=== PATIENT | female | born 2000 | race Caucasian/White ===

== ENCOUNTER 2023-05-09 17:36 | Emergency (ER) | payer BC, OTHER, SELFPAY ==
[2023-05-09] VITALS (16 sets, daily range): BP systolic 108–131; BP diastolic 69–85; PULSE 82–110; RESP 14–25; TEMP 36.9; O2SAT 96–100; BMI 26.3
--- NOTE | 2023-05-09 18:02 | XR_ITS ---
[place] [id number] Patient Name: SARI GLEZ MRN: [id number] date: 2000 Sex: F Assigned Patient Location: ER Current Patient Location: ER Accession/Order Number: [id number] Exam Date: 05/09/2023 18:18 Report Date: 05/09/2023 18:32 At the request of: LALO MANDUJANO Procedure: XR chest 2V EXAM: XR chest 2V HISTORY: pain COMPARISON: 02/18/2023 TECHNIQUE: PA and lateral views of the chest FINDINGS: There is no focal airspace consolidation. The cardiomediastinal silhouette is not enlarged. No evidence of pleural effusion or pneumothorax are identified. No acute osseous abnormality. IMPRESSION: No acute cardiopulmonary process. Electronically authenticated by: JOSE MCDANIEL Date: 05/09/2023 18:32
--- NOTE | 2023-05-09 18:02 | ECG_ITS ---
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
--- NOTE | 2023-05-09 18:07 | ED_ITS ---
HPI - General Adult General Chief complaint: Chest Pain Stated complaint: chest pain, sob Time Seen by Provider: 05/09/23 18:02 Source: patient Mode of arrival: walk-in Limitations: no limitations History of Present Illness HPI narrative: 22-year-old female presents with a chief complaint of pain with deep inspiration. Patient states she had similar symptoms approximately one month ago with diagnosed with walking pneumonia. Pain is reproducible with deep inspiration. She is not hypoxic. Denies any recent surgery travel or trauma. States was placed on antibiotic previously. She is not asthmatic. We'll send are stable she is afebrile. Related Data Home Medications Medication Instructions Recorded Confirmed fluoxetine 10 mg capsule 10 mg PO DAILY 05/09/23 05/09/23 Previous Rx's Medication Instructions Recorded prednisone 20 mg tablet 20 mg PO BID 5 days #10 tabs 05/09/23 Allergies Allergy/AdvReac Type Severity Reaction Status Date / Time No Known Drug Allergies Allergy Verified 05/09/23 17:42 Review of Systems ROS Narrative All Systems are negative except as noted/marked.All systems reviewed and otherwise negative PFSH PFSH Social History Smoking status: Current some day smoker Exam Constitutional Vital Signs - 24 hr 05/09/23 17:42 05/09/23 17:46 05/09/23 17:50 Temperature 98.5 F Pulse Rate 110 H 98 H Pulse Rate [Monitor] 100 H Respiratory Rate 20 18 17 Blood Pressure Blood Pressure [Right Arm] 127/83 H Pulse Oximetry 97 98 Oxygen Delivery Method Room Air 05/09/23 18:00 05/09/23 18:10 05/09/23 18:22 Temperature Pulse Rate 99 H 84 106 H Pulse Rate [Monitor] Respiratory Rate 17 18 19 Blood Pressure Blood Pressure [Right Arm] Pulse Oximetry Oxygen Delivery Method 05/09/23 18:30 05/09/23 18:40 05/09/23 18:50 Temperature Pulse Rate 94 H 86 82 Pulse Rate [Monitor] Respiratory Rate 25 H 18 14 Blood Pressure Blood Pressure [Right Arm] Pulse Oximetry Oxygen Delivery Method 05/09/23 18:52 05/09/23 18:53 05/09/23 19:00 Temperature Pulse Rate 88 85 91 H Pulse Rate [Monitor] Respiratory Rate 17 19 21 Blood Pressure 108/69 113/74 Blood Pressure [Right Arm] Pulse Oximetry 97 98 97 Oxygen Delivery Method 05/09/23 19:30 05/09/23 19:41 05/09/23 20:00 Temperature Pulse Rate 92 H 94 H Pulse Rate [Monitor] Respiratory Rate 22 24 Blood Pressure 122/77 H 131/74 H 111/85 H Blood Pressure [Right Arm] Pulse Oximetry 96 100 Oxygen Delivery Method Course Vital Signs Vital signs: Vital Signs Temperature 98.5 F 05/09/23 17:42 Pulse Rate 100 H 05/09/23 17:42 Respiratory Rate 20 05/09/23 17:42 Blood Pressure 127/83 H 05/09/23 17:42 Pulse Oximetry 97 05/09/23 17:42 Oxygen Delivery Method Room Air 05/09/23 17:42 Temperature 98.5 F 05/09/23 17:42 Pulse Rate 94 H 05/09/23 19:41 Respiratory Rate 16 05/09/23 20:20 Blood Pressure 111/85 H 05/09/23 20:20 Pulse Oximetry 99 05/09/23 20:20 Oxygen Delivery Method Room Air 05/09/23 17:42 Medical Decision Making Medical Records Medical records reviewed: Yes I reviewed the patient's medical records Medical records narrative: Patient presented here with a chief complaint of chest pain with deep inspiration. She states she had similar symptoms one month ago was diagnosed with walking pneumonia. She was seen here in the hospital and given a prescription for Zithromax. She presents today with increased pain with deep inspiration. She is not tachypneic while signs are stable she's afebrile. Denies a history of fever. Denies any radiation pain or shortness of breath. Patient heart score of zero. D-dimer is currently pending. There is a system error and our d-dimer sitting sent to another facility. She wishes to go home she is curr ently stable. She has been medicated here with Toradol for a minor headache as well. Denies worse headache of her life. Patient is made aware of her d-dimer is elevated she did come back to the hospital to have a CT scan of her chest. She still wishes to go home. Patient is currently stable vital signs are stable pulses ninety-four appears for an temperature 78.5. Patient be discharged from prescription of prednisone diagnosis chest wall pain or pleurisy Lab Data Labs: Lab Results 05/09/23 Range/Units 18:45 D-Dimer (<=0.59) mg/L FEU ECG Data Interpretation: 1746 a GC shows a sinus tachycardia with rate of 101 bpm, NM interval 142 ms QRS duration 80 ms no STEMI, motor EKG compared to February 18 Discharge Plan Discharge Chief Complaint: Chest Pain Clinical Impression: Chest pain, Pleurisy Patient Disposition: Home, Self-Care Time of Disposition Decision: 20:01 Condition: Good Prescriptions / Home Meds: New prednisone 20 mg tablet 20 mg PO BID 5 Days Qty: 10 0RF No Action fluoxetine 10 mg capsule 10 mg PO DAILY Instructions: Pleurisy (ED), Chest Wall Pain (ED) Stand Alone Forms: Portal Instructions Referrals: GIACOMO CAPPS [Primary Care Provider] - 1 week Discharge Date/Time: 05/09/23 20:21
[2023-05-09] MEDS: KETOROLAC TROMETHAMINE 60 MG/2 ML VIAL IM (19:57)
== END 2023-05-09 20:21 | disposition home or self-care (01) ==
PROVIDERS: Physician Assistant; Emergency Provider Emergency Medicine; PCP Family Medicine
DX: R07.9 Chest pain, unspecified (principal); R09.1 Pleurisy; F17.210 Nicotine dependence, cigarettes, uncomplicated
CPT/HCPCS: 36415; 71046; 85378; 93005; 96372; 99285

== ENCOUNTER 2023-09-17 18:47 | Emergency (ER) | payer BC, OTHER, SELFPAY ==
[2023-09-17 18:51] VITALS: BP 128/87; PULSE 107; RESP 16; TEMP 37.1; O2SAT 98; BMI 25.0
--- NOTE | 2023-09-17 19:25 | ED.EAR1 ---
HPI - Ear Problem General Chief complaint: Ear Stated complaint: EARACHE Time Seen by Provider: 09/17/23 19:20 Source: patient Mode of arrival: walk-in Limitations: no limitations History of Present Illness HPI Narrative: patient presents complaining of right ear ache for couple of days. also has dental pain same side as the ear pain. No fever, headache or nausea. No sore throat. States she had similar pain in the past and it was her tooth and not her ear. Has upcoming appointment with her dentist Complaint: Reports ear pain Related Data Home Medications Medication Instructions Recorded Confirmed fluoxetine 10 mg capsule 10 mg PO DAILY 05/09/23 05/09/23 Previous Rx's Medication Instructions Recorded prednisone 20 mg tablet 20 mg PO BID 5 days #10 tabs 05/09/23 Allergies Allergy/AdvReac Type Severity Reaction Status Date / Time No Known Drug Allergies Allergy Verified 05/09/23 17:42 Review of Systems ROS Status of ROS 10 or more systems reviewed and unremarkable except as noted in history and below PFSH PFSH Social History Smoking status: Never smoker Exam Constitutional Vital Signs, click to edit/add: Last Vital Signs Temp 98.7 F 09/17/23 18:51 Pulse 107 H 09/17/23 18:51 Resp 16 09/17/23 18:51 BP 128/87 09/17/23 18:51 Pulse Ox 98 09/17/23 18:51 O2 Del Method Room Air 09/17/23 18:51 Common normals: no apparent distress, average body habitus, oriented x3, no limitations and healthy appearing HENMT Other: bilat TMs normal no obvious dental caries Eye Common normals: PERRL, EOMs intact bilaterally and conjunctivae normal Respiratory Common normals: normal respiratory effort, no retractions, no use of accessory muscles and clear to auscultation bilaterally Extremity Common normals: normal to inspection and full ROM Neuro Common normals: oriented x3, CN's II-XII intact bilaterally, moves all extremities, no focal motor deficits and no sensory deficits noted Psych Appearance: grossly normal Course Vital Signs Vital signs: Vital Signs Temperature 98.7 F 09/17/23 18:51 Pulse Rate 107 H 09/17/23 18:51 Respiratory Rate 16 09/17/23 18:51 Blood Pressure 128/87 09/17/23 18:51 Pulse Oximetry 98 09/17/23 18:51 Oxygen Delivery Method Room Air 09/17/23 18:51 Temperature 98.7 F 09/17/23 18:51 Pulse Rate 107 H 09/17/23 18:51 Respiratory Rate 16 09/17/23 18:51 Blood Pressure 128/87 09/17/23 18:51 Pulse Oximetry 98 09/17/23 18:51 Oxygen Delivery Method Room Air 09/17/23 18:51 Medical Decision Making MDM Narrative Medical decision making narrative: presents with ear pain for a couple of days. right ear pain. Exam of the right ear is unremarkable. Patient informed of these findings. Advised to follow up with her dentist as scheduled and use motrin or similar for pain Discharge Plan Discharge Chief Complaint: Ear Clinical Impression: Ear pain, right Patient Disposition: Home, Self-Care Prescriptions / Home Meds: No Action fluoxetine 10 mg capsule 10 mg PO DAILY prednisone 20 mg tablet 20 mg PO BID 5 Days Qty: 10 0RF Instructions: Earache (ED) Stand Alone Forms: Portal Instructions Referrals: GIACOMO CAPPS [Primary Care Provider] - 1 week
== END 2023-09-17 19:44 | disposition home or self-care (01) ==
PROVIDERS: Emergency Provider Internal Medicine; PCP Family Medicine
DX: H92.01 Otalgia, right ear (principal)
CPT/HCPCS: 99281

== ENCOUNTER 2023-09-20 19:13 | Emergency (ER) | payer BC, OTHER, SELFPAY ==
[2023-09-20 19:21] VITALS: BP 122/69; PULSE 120; RESP 16; TEMP 36.9; O2SAT 96; BMI 25.0
--- NOTE | 2023-09-20 19:27 | PC.NURSE ---
pt presents to ED because patient states she was here with her son on tuesday and was c/o right ear pain. pt states they looked at her ear and was told everything looked good. pt states that she is now having pain to a tooth on the right lower side. patient has known infection and a broken tooth on that side and it has been there for a while but it just now started giving her problems. pt states right ear pain is worse today.
--- NOTE | 2023-09-20 19:38 | ED.DENTAL1 ---
HPI - Dental/Oral General Chief complaint: Dental/Oral Stated complaint: Dental Pain Time Seen by Provider: 09/20/23 19:19 History of Present Illness HPI Narrative: patient is a 23-year-old female who presents to the emergency department for the evaluation of dental pain. Patient states she was seen in this emergency department several days ago for right ear pain, her right ear was unremarkable and she was discharged home. She states she is now having pain in the tooth in the right maxilla, she states she is known to have an issue with this tooth and it is supposed to be pulled. She states she recently had a tooth pulled from the left side of the jaw so she has been chewing on the right side and she believes this has made her pain worse. She has had no fevers, no vomiting, no concern for . Related Data Home Medications Medication Instructions Recorded Confirmed fluoxetine 10 mg capsule 10 mg PO DAILY 05/09/23 09/20/23 Previous Rx's Medication Instructions Recorded amoxicillin 500 mg capsule 500 mg PO TID 7 days #21 caps 09/20/23 ketorolac 10 mg tablet 10 mg PO TID PRN pain #10 tabs 09/20/23 Allergies Allergy/AdvReac Type Severity Reaction Status Date / Time No Known Drug Allergies Allergy Verified 09/20/23 19:24 Review of Systems ROS Constitutional Denies: fever or chills Ears, nose, mouth, and throat Denies: throat pain Cardiovascular Denies: chest pain Respiratory Denies: shortness of breath or cough Gastrointestinal Denies: nausea or vomiting Musculoskeletal Denies: back pain Integumentary/Breast Denies: rash Allergic/Immunologic Denies: hives PFSH PFSH Social History Smoking status: Current every day smoker Exam Narrative Exam Narrative: Gen.: Awake, alert, in no distress Head: Normocephalic, atraumatic ENT: Moist mucous membranes, bilateral tympanic membranes clear; no mandibular or maxillary swelling, tooth #1 is tender with no drainage or abscess noted. No redness or swelling under the tongue Respiratory: No respiratory distress Extremities: Moves extremities equally Psych: Normal mood and affect Neuro: No focal neuro deficit Skin: Warm, dry, intact Constitutional Vital Signs, click to edit/add: Last Vital Signs Temp 98.5 F 09/20/23 19:21 Pulse 120 H 09/20/23 19:21 Resp 16 09/20/23 19:21 BP 122/69 09/20/23 19:21 Pulse Ox 96 09/20/23 19:21 O2 Del Method Room Air 09/20/23 19:21 Course Vital Signs Vital signs: Vital Signs Temperature 98.5 F 09/20/23 19:21 Pulse Rate 120 H 09/20/23 19:21 Respiratory Rate 16 09/20/23 19:21 Blood Pressure 122/69 09/20/23 19:21 Pulse Oximetry 96 09/20/23 19:21 Oxygen Delivery Method Room Air 09/20/23 19:21 Temperature 98.5 F 09/20/23 19:21 Pulse Rate 120 H 09/20/23 19:21 Respiratory Rate 16 09/20/23 19:21 Blood Pressure 122/69 09/20/23 19:21 Pulse Oximetry 96 09/20/23 19:21 Oxygen Delivery Method Room Air 09/20/23 19:21 MDM - Dental/Oral MDM Narrative Medical decision making narrative: patient will be treated for dental pain with known dental caries, short course of amoxicillin given as she finished antibiotics approximately one month ago. Topical analgesia and NSAIDs given for comfort. No evidence of significant dental abscess, no trismus or drooling. Medical Records Attestation: I reviewed the patient's medical records. Discharge Plan Discharge Chief Complaint: Dental/Oral Clinical Impression: Toothache Patient Disposition: Home, Self-Care Time of Disposition Decision: 19:36 Condition: Good Prescriptions / Home Meds: New amoxicillin 500 mg capsule 500 mg PO TID 7 Days Qty: 21 0RF ketorolac 10 mg tablet 10 mg PO TID PRN (Reason: pain) Qty: 10 0RF No Action fluoxetine 10 mg capsule 10 mg PO DAILY Instructions: Toothache (ED) Stand Alone Forms: Portal Instructions Referrals: GIACOMO CAPPS [Primary Care Provider] - 1 week Discharge Date/Time: 09/20/23 19:59
[2023-09-20] MEDS: BENZOCAINE 30 ML, lidocaine HCL 15 ML MM (19:56)
== END 2023-09-20 19:59 | disposition home or self-care (01) ==
PROVIDERS: Emergency Provider Internal Medicine; PCP Family Medicine
DX: K08.89 Other specified disorders of teeth and supporting structures (principal); F17.210 Nicotine dependence, cigarettes, uncomplicated
CPT/HCPCS: 99283

== ENCOUNTER 2023-12-03 18:14 | Emergency (ER) | payer BC, OTHER, SELFPAY ==
[2023-12-03 18:19] VITALS: BP 142/84; PULSE 103; RESP 16; TEMP 36.8; O2SAT 97; BMI 20.5
--- NOTE | 2023-12-03 18:19 | ED.DENTAL1 ---
HPI - Dental/Oral General Chief complaint: Dental/Oral Stated complaint: TOOTH PAIN Time Seen by Provider: 12/03/23 18:18 Source: patient History of Present Illness HPI Narrative: patient's here with pain in her lower right mandibular area here she was seen here several months ago and had left sided mandibular toothache. She subsequently had her tooth pulled but now the bottom right side is causing a problem. She's noticed a lump on the side of her gum area. She doesn't really have any facial swelling. She does not have a known ALLERGIES. She is not currently on any antibiotics at this time. She just can't find a oral surgeon who can deal with this problem because apparently she has a molar that needs to be pulled and have regular dentist won't do that work for her. Related Data Home Medications Medication Instructions Recorded Confirmed fluoxetine 10 mg capsule 10 mg PO DAILY 05/09/23 12/03/23 benzonatate 200 mg capsule 200 mg PO TID 12/03/23 12/03/23 fluticasone propionate 50 1 spray intranasal DAILY 12/03/23 12/03/23 mcg/actuation nasal spray,suspension metformin 500 mg tablet 500 mg PO BID 12/03/23 12/03/23 prednisone 10 mg tablet 10 mg PO DAILY 12/03/23 12/03/23 rizatriptan 10 mg tablet 10 mg PO Q2H PRN migraine headache 12/03/23 12/03/23 Previous Rx's Medication Instructions Recorded penicillin V potassium 250 mg 250 mg PO QID 10 days #40 tabs 12/03/23 tablet Allergies Allergy/AdvReac Type Severity Reaction Status Date / Time No Known Drug Allergies Allergy Verified 09/20/23 19:24 PFSH PFSH Social History Smoking status: Current every day smoker Exam Constitutional Vital Signs, click to edit/add: Last Vital Signs Temp 98.6 F 12/03/23 19:47 Pulse 98 H 12/03/23 19:47 Resp 18 12/03/23 19:47 BP 122/78 12/03/23 19:47 Pulse Ox 100 12/03/23 19:47 O2 Del Method Room Air 12/03/23 19:47 Course Vital Signs Vital signs: Vital Signs Temperature 98.3 F 12/03/23 18:19 Pulse Rate 103 H 12/03/23 18:19 Respiratory Rate 16 12/03/23 18:19 Blood Pressure 142/84 H 12/03/23 18:19 Pulse Oximetry 97 12/03/23 18:19 Oxygen Delivery Method Room Air 12/03/23 18:19 Temperature 98.6 F 12/03/23 19:47 Pulse Rate 98 H 12/03/23 19:47 Respiratory Rate 18 12/03/23 19:47 Blood Pressure 122/78 12/03/23 19:47 Pulse Oximetry 100 12/03/23 19:47 Oxygen Delivery Method Room Air 12/03/23 19:47 MDM - Dental/Oral Lab Data Labs: Lab Results 12/03/23 Range/Units 18:27 POC Glucose 93 (74-106) mg/dL Discharge Plan Discharge Chief Complaint: Dental/Oral Clinical Impression: Gingival abscess Patient Disposition: Home, Self-Care Time of Disposition Decision: 19:30 Condition: Good Mode of Transportation: Private Vehicle Prescriptions / Home Meds: New penicillin V potassium 250 mg tablet 250 mg PO QID 10 Days Qty: 40 0RF No Action fluoxetine 10 mg capsule 10 mg PO DAILY benzonatate 200 mg capsule 200 mg PO TID fluticasone propionate 50 mcg/actuation spray,suspension 1 spray INTRANASAL DAILY metformin 500 mg tablet 500 mg PO BID prednisone 10 mg tablet 10 mg PO DAILY rizatriptan 10 mg tablet 10 mg PO Q2H PRN (Reason: migraine headache) Instructions: Dental Abscess (ED) Stand Alone Forms: Portal Instructions Referrals: GIACOMO CAPPS [Primary Care Provider] - 1 week Discharge Date/Time: 12/03/23 19:48
--- OUTSIDE RECORDS SUMMARY | 2023-12-03 18:23 | XMS_ITS | CCD ---
Author Name Unknown Address [address] [place] [address] Organization [facility] Care Team Providers Care Community Placement Worker Name Role Phone LUIS ANGEL ., ANGEL Admitting Unavailable LUIS ANGEL ., ANGEL Consulting Unavailable LUIS ANGEL [place], ANGEL Attending Unavailable JEFRY, DR GOODEN Primary Care Unavailable JASMIN CRUZ Consulting Unavailable AUGUST ., DR ALICEA Admitting Unavailable AUGUST ., DR ALICEA Consulting Unavailable AUGUST ., DR ALICEA Attending Unavailable REQUEST, DR PRITI LISTED Primary Care UnavailPallavi Chavez Attending Unavailable Pallavi High Admitting Unavailable Sara Capps Primary Care Unavailable Unavailable Primary Care Provider UnavailSARA Joshi Attending Unavailable Medications Current Medications Medication Drug Class(es) Dates Sig (Normalized) Sig (Original) metFORMIN hydrochloride 500 mg oral tablet (1 source) Biguanide Start: 11-19-2023 End: 12-19-2023 take 1 tablet by mouth twice daily at mealtime metFORMIN (GLUCOPHAGE) 500 MG tablet Take 1 tablet by mouth 2 times daily (with meals) 60 tablet 0 11/19/2023 12/19/2023 Active Completed/Discontinued Medications Medication Drug Class(es) Dates Sig (Normalized) Sig (Original) clindamycin 150 mg oral capsule (2 sources) Lincosamide Antibacterial Start: 11-19-2023 End: 11-19-2023 clindamycin (CLEOCIN) capsule 300 mg Start: 11-19-2023 End: 11-29-2023 take 1 capsule by mouth four times daily clindamycin (CLEOCIN) 300 MG capsule Take 1 capsule by mouth 4 times daily for 10 days 40 capsule 0 11/19/2023 11/29/2023 Active 1 ml LORazepam 2 mg/ml injection (1 source) Benzodiazepine Start: 11-19-2023 End: 11-19-2023 LORazepam (ATIVAN) injection 1 mg 50 ml sodium chloride 9 mg/ml injection (1 source) Start: 11-19-2023 End: 11-19-2023 sodium chloride 0.9 % bolus 1,000 mL Problems Active Problems Problem Classification Problem Date Documented Da te Episodic/Chronic Cardiac dysrhythmias (1 source) Palpitations; Translations: [Palpitations] 11-19-2023 Episodic Diabetes mellitus without complication (1 source) Hyperglycemia; Translations: [Hyperglycemia, unspecified] 11-19-2023 Episodic Disorders of teeth and jaw (1 source) Infection of tooth; Translations: [Periapical abscess without sinus] 11-19-2023 Episodic Nonspecific chest pain (3 sources) Chest pain, unspecified; Translations: [CHEST PAIN UNSPECIFIED] Onset: 02-19-2023 Episodic Other lower respiratory disease (1 source) Shortness of breath; Translations: [Shortness of breath] Onset: 05-09-2023 Episodic Pleurisy; pneumothorax; pulmonary collapse (1 source) Pleurisy; Translations: [PLEURISY] Onset: 02-22-2023 Episodic Pneumonia (except that caused by tuberculosis or sexually transmitted disease) (1 source) Pneumonia, unspecified organism; Translations: [PNEUMONIA UNSPECIFIED ORGANISM] Onset: 02-22-2023 Episodic Past or Other Problems Problem Classification Problem Date Documented Date Episodic/Chronic Immunizations and screening for infectious disease (1 source) Encounter for screening for human papillomavirus (HPV); Translations: [ENC SCREENING HUMAN PAPILLOMAVIRUS] Onset: 02-26-2022 Episodic Other screening for suspected conditions (not mental disorders or infectious disease) (4 sources) Encounter for screening for malignant neoplasm of cervix; Translations: [ENC SCREENING MALIG NEOPLASM CERV] Onset: 02-25-2022 Episodic Results Test Name Value Interpretation Reference Range Facility Basic Metabolic Panelon 10-29 Anion gap [Moles/Vol] 13 mmol/L 9 - 17 mmol/L [facility] Calcium [Mass/Vol] 9.4 mg/dL 8.6 - 10. 4 mg/dL [facility] [employer] Chloride [Moles/Vol] 96 mmol/L Low 98 - 10 7 mmol/L [facility] CO2 [Moles/Vol] 24 mmol/L 20 - 31 mmol/L [facility] Creatinine [Mass/Vol] 0.9 mg/dL 0.5 - 0.9 mg/dL [facility] GFR/1.73 sq M.predicted MDRD (S/P/Bld) [Vol rate/Area] - PINF [facility] Comment on above: These results are not intended for use in patients <18 years of age. eGFR results are calculated without a race factor using the 2020 CKD-EPI equation. Careful clinical correlation is recommended, particularly when comparing to results calculated using previous equations. The CKD-EPI equation is less accurate in patients with extremes of muscle mass, extra-renal metabolism of creatine, excessive creatine ingestion, or following therapy that affects renal tubular secretion. Glucose [Mass/Vol] 302 mg/dL High 70 - 99 mg/dL [facility] Interpretation and review of laboratory results Abnormal [facility] Potassium [Moles/Vol] 3.2 mmol/L Low 3.7 - 5.3 mmol/L [facility] Sodium [Moles/Vol] 133 mmol/L Low 135 - 144 mmol/L [facility] Urea nitrogen [Mass/Vol] 12 mg/dL 6 - 20 mg/dL [facility] Urea nitrogen/Creatinine [Mass ratio] 13 mg/mg 9 - 20 [facility] Beta-Hydroxybutyrateon 11-19 Beta hydroxybutyrate [Mass/Vol] 0.06 mmol/L 0.02 - 0.27 mmol/L [facility] CBC with Auto Differentialon 11-19-2023 Basophils (Bld) [#/Vol] 0.05 10*3/uL [facility] Basophils/100 WBC (Bld) 0 % 0 - 2 % [facility] Eosinophils (Bld) [#/Vol] [facility] Eosinophils/100 WBC (Bld) 0 % Low 1 - 4 % [facility] Erythrocyte distribution width (RBC) [Ratio] 11.5 % Low 11.8 - 14.4 % [facility] Hematocrit (Bld) [Volume fraction] 41.3 % 36.3 - 47.1 % [facility] Hemoglobin (Bld) [Mass/Vol] 13.7 g/dL 11.9 - 15.1 g/dL [facility] Immature granulocytes (Bld) [#/Vol] 0.06 10*3/uL [facility] Immature granulocytes/100 WBC (Bld) 0 % 0 [facility] Interpretation and review of laboratory results Abnormal [facility] Lymphocytes/100 WBC (Bld) 8 % Low 24 - 43 % [facility] Lymphocytes/100 WBC (Bld) 1.21 % [facility] MCH (RBC) [Entitic mass] 29.1 pg 25.2 - 33.5 pg [facility] MCHC (RBC) [Mass/Vol] 33.2 g/dL 28.4 - 34.8 g/dL [facility] MCV (RBC) [Entitic vol] 87.7 fL 82.6 - 102.9 fL [facility] Monocytes/100 WBC (Bld) 5 % 3 - 12 % [facility] Monocytes/100 WBC (Bld) 0.73 % [facility] Neutrophils/100 WBC (Bld) 87 % High 36 - 65 % [facility] Nucleated RBC/100 WBC (Bld) [Ratio] 0.0 % 0.0 per 100 WBC [facility] Platelet mean volume (Bld) [Entitic vol] 10.5 fL 8.1 - 13.5 fL [facility] Platelets (Bld) [#/Vol] 263 10*3/uL [facility] RBC (Bld) [#/Vol] 4.71 10*6/uL 3.95 - 5.1 1 m/uL [facility] Segmented neutrophils/100 WBC (Bld) 13.87 % High [facility] WBC other (Bld) [#/Vol] 15.9 High [facility] D-Dimer, Quantitativeon 10-29 Fibrin D-dimer FEU (PPP) [Mass/Vol] 0.30 [facility] Comment on above: When combined with a low clinical probability, a D dimer value of <0.50 ug/mL FEU is considered negative for DVT and PE (negative predictive value of 98%, sensitivity of 97%). If this test is not being used to help rule out DVT and PE, then the following reference range should be utilized: 0.00 - 0.59 ug/mL FEU. The D-Dimer assay is intended for use as an aid in the diagnosis of venous thromboembolism (DVT and PE) and the results should be interpreted in conjunction with the patient's medical history, clinical presentation, and other findings. Elevated levels of D-dimer activity can be seen in any state of coagulation activation and is not recommended in patients with therapeutic dose anticoagulant therapy for >24 hours, fibrinolytic therapy within the previous 7 days, trauma or surgery within the previous 4 weeks, disseminated malignancies, aortic aneurysm, sepsis, severe infections, pneumonia, severe skin infections, liver cirrhosis, advanced age, coronary disease, diabetes, and . A very low percentage of patients with DVT may yield D-dimer results below the cutoff of 0.5 ug/mL FEU. This is known to be more prevalent in patients with distal DVT. [employer] Drug screen multi urineon Amphetamines Ql (U) Negative NEGATIVE [facility] Comment on above: (Positive cutoff 1000 ng/mL) Barbiturates Screen Ql (U) Negative NEGATIVE [facility] Comment on above: (Positive cutoff 200 ng/mL) Benzodiazepines Ql (U) Negative NEGATIVE [facility] Comment on above: (Positive cutoff 200 ng/mL) Buprenorphine Ql (U) Negative NEGATIVE [facility] Comment on above: (Positive cutoff 5 ng/ml) Cannabinoids Screen Ql (U) Positive Abnormal NEGATIVE [facility] Comment on above: (Positive cutoff 50 ng/mL) Cocaine Ql (U) Negative NEGATIVE [facility] Comment on above: (Positive cutoff 300 ng/mL) fentaNYL Ql (U) Negative NEGATIVE [facility] Comment on above: (Positive cutoff 5 ng/ml) Interpretation and review of laboratory results Abnormal [facility] Methadone Ql (U) Negative NEGATIVE [facility] Comment on above: (Positive cutoff 300 ng/mL) Opiates Screen Ql (U) Negative NEGATIVE [facility] Comment on above: (Positive cutoff 300 ng/mL) oxyCODONE Ql (U) Negative NEGATIVE [facility] Comment on above: (Positive cutoff 100 ng/mL) Phencyclidine Ql (U) Negative NEGATIVE [facility] Comment on above: (Positive cutoff 25 ng/mL) Test Information Assay provides medical screening only. The absence of expected drug(s) and/or metabolite(s) may indicate diluted or adulterated urine, limitations of testing or timing of collection. [facility] Comment on above: Testing for legal pu rposes should be confirmed by another method. To request confirmation of test result, please call the lab within 7 days of sample submission. [facility] Glucose, Whole Bloodon 11-19 Glucose [Mass/Vol] 286 mg/dL High 74 - 100 mg/dL [facility] Interpretation and review of laboratory results Abnormal [facility] Magnesiumon 11-19-2023 Magnesium [Mass/Vol] 1.6 mg/dL 1.6 - 2 .6 mg/dL [facility] Microscopic Urinalysison Bacteria LM Ql (Urine sed) 1+ Abnormal None [facility] Epithelial cells LM.HPF (Urine sed) [#/Area] 2 TO 5 [facility] Interpretation and review of laboratory results Abnormal [facility] RBC LM.HPF (Urine sed) [#/Area] 0 TO 2 [facility] WBC LM.HPF (Urine sed) [#/Area] 2 TO 5 [facility] No Panel Informationon 11-19 [facility] , Urineon 3 HCG ( test) Ql (U) Negative NEGATIVE [facility] Comment on above: Specimens with hCG l evels near the threshold of the test (25 mIU/mL) may give a negative or indeterminate result. In such cases, another test should be performed with a new specimen in 48-72 hours. If early is suspected clinically in this setting, correlation with quantitative serum b-hCG level is suggested. [employer] has confirmed the use of plasma for this test. This has not been cleared or approved by the U.S. Food and Drug Administration. The FDA has determined that such clearance is not necessary. [facility] TSHon 11-19-2023 TSH Qn 0.88 m[IU]/L [facility] Urinalysis with Reflex to Cu ltureon 11-19-2023 Bilirubin Ql (U) Negative NEGATIVE [facility] Clarity (U) Clear Clear [facility] Color (U) Yellow Yellow [facility] Glucose Test strip (U) [Mass/Vol] 3+ Abnormal NEGATIVE mg/dL [facility] Hemoglobin Auto test strip Ql (U) Negative NEGATIVE [facility] Interpretation and review of laboratory results Abnormal [facility] Ketones (U) [Mass/Vol] Negative NEGATIVE mg/dL [facility] Leukocyte esterase Test strip Ql (U) TRACE Abnormal NEGATIVE [facility] Nitrite Ql (U) Negative NEGATIVE [facility] pH (U) 6.0 [pH] 5.0 - 9.0 [facility] Protein (U) [Mass/Vol] Negative NEGATIVE mg/dL [facility] Specific gravity (U) [Rel density] Low 1.010 - 1.020 [facility] Urobilinogen Qn (U) Normal 0.0 - 1. 0 EU/dL [facility] XR Chest 2 Viewson 3 No radiographic evidence of acute pulmonary abnormality seen. PN RIS CONSOLIDATED EXAMINATION: TWO XRAY VIEWS OF THE CHEST 11/19/2023 9:09 pm COMPARISON: None. HISTORY: ORDERING SYSTEM PROVIDED HISTORY: cough TECHNOLOGIST PROVIDED HISTORY: cough FINDINGS: The cardiac silhouette appears within normal limits. No confluent airspace opacity, pleural effusion, or pneumothorax is seen. PN RIS CONSOLIDATED Jose Covarrubias MD - 11/19/2023 EXAMINATION: TWO XRAY VIEWS OF THE CHEST 11/19/2023 9:09 pm COMPARISON: None. HISTORY: ORDERING SYSTEM PROVIDED HISTORY: cough TECHNOLOGIST PROVIDED HISTORY: cough FINDINGS: The cardiac silhouette appears within normal limits. No confluent airspace opacity, pleural effusion, or pneumothorax is seen. IMPRESSION: No radiographic evidence of acute pulmonary abnormality seen. [facility] Radiology Study observation (narrative) [facility] XR Chest 2 ViewsOrdered By: Jose Covarrubias on 11-19-2023 [facility] Work Phone: D-Dimer High Sensitivityon 0 05-09-2023 D-Dimer High Sensitivity < 200 Normal 0-243 [facility] Comment on above: Result Comment: The reference range for D-dimer is <243 ng/mL D-dimer units. D-dimer results must be used in conjunction with a clinical pretest probability (PTP) assessment model for deep vein thrombosis (DVT) and pulmonary embolism (PE). Results <230 ng/mL d-dimer units can be used as a negative predictor in patients with low or moderate probability for DVT/PE. Results above the exclusion threshold of 230 ng/ml D-dimer units for DVT/PE may indicate the need for further diagnostic testing. D-Dimer can be increased in hospitalized patients due to co-morbid conditions. PERFORMED BY: [place] [address] PATHOLOGIST LABORER [employer] ROMAIN HOOKS M.D. Performed By: #### D DIMER #### [address] CBC AUTO DIFFon 02-19-2023 BASO # 0.0 103/ul Normal 0.0-0.1 [facility] Comment on above: Performed By: #### C BC #### [facility] [address] [place] [address] Dr. Marry Carty Basophils/100 WBC (Bld) 0.4 % Normal 0.2-2.0 [facility] Comment on above: Performed By: #### C BC #### [facility] [address] [place] [address] Dr. Marry Carty EO # 0.2 103/ul Normal 0.0-0.7 [facility] Comment on above: Performed By: #### C BC #### [facility] [address] [place] [address] Dr. Marry Carty Eosinophils/100 WBC (Bld) 1.6 % Normal 0.9-7.0 [facility] Comment on above: Performed By: #### C BC #### [facility] [address] [place] [address] Dr. Marry Carty Erythrocyte distribution width (RBC) [Ratio] 11.9 % Normal 11.0-15.0 [facility] Comment on above: Performed By: #### C BC #### [facility] [address] [place] [address] Dr. Marry Carty Hematocrit (Bld) [Volume fraction] 41.8 % Normal 36.0-48.0 [facility] Comment on above: Performed By: #### C BC #### [facility] [address] [place] [address] Dr. Marry Carty Hemoglobin (Bld) [Mass/Vol] 13.8 g/dL Normal 12.0-16.0 [facility] Comment on above: Performed By: #### C BC #### [facility] [address] [place] [address] Dr. Marry Carty IG # 0.03 10e3/ul Normal 0.00-0.03 [facility] Comment on above: Performed By: #### C BC #### [facility] [address] [place] [address] Dr. Marry Carty IG % 0.3 % Normal 0.0-0.5 [facility] Comment on above: Performed By: #### C BC #### [facility] [address] [place] [address] Dr. Marry Carty LYMPH # 2.6 103/ul Normal 1.2-3.8 [facility] Comment on above: Performed By: #### C BC #### [facility] [address] [place] [address] Dr. Marry Carty Lymphocytes/100 WBC (Bld) 28.1 % Normal 20.5-60.0 [facility] Comment on above: Performed By: #### C BC #### [facility] [address] [place] [address] Dr. Marry Carty MANUAL DIFF REQ NO Normal [facility] Comment on above: Performed By: #### C BC #### [facility] [address] [place] [address] Dr. Marry Carty MCH (RBC) [Entitic mass] 28.8 pg Normal 26.7-34.0 [facility] Comment on above: Performed By: #### C BC #### [facility] [address] [address] [address] Marry Carty MCHC (RBC) [Mass/Vol] 33.0 g/dL Normal 29.9-35.2 [facility] Comment on above: Performed By: #### C BC #### [facility] [address] [address] [address] Marry Carty MCV (RBC) [Entitic vol] 87.1 fL Normal 81.0-99.0 [facility] Comment on above: Performed By: #### C BC #### [facility] [address] [place] [address] Dr. Marry Carty MONO # 0.5 103/ul Normal 0.3-0.8 [facility] Comment on above: Performed By: #### C BC #### [facility] [address] [place] [address] Dr. Marry Carty Monocytes/100 WBC (Bld) 5.8 % Normal 1.7-12.0 [facility] Comment on above: Performed By: #### C BC #### [facility] [address] [place] [address] Dr. Marry Carty NEUT # 6.0 103/ul Normal 1.4-6.5 [facility] Comment on above: Performed By: #### C BC #### [facility] [address] [place] [address] Dr. Marry Carty Neutrophils/100 WBC (Bld) 63.8 % Normal 43.0-75.0 [facility] Comment on above: Performed By: #### C BC #### [facility] [address] [place] [address] Dr. Marry Carty Platelet mean volume (Bld) [Entitic vol] 9.9 fL Normal 9.5-13.5 [facility] Comment on above: Performed By: #### C BC #### [facility] [address] [address] [address] Marry Carty PLT 250 103/ul Normal 150-450 [facility] Comment on above: Performed By: #### C BC #### [facility] [address] [place] [address] Dr. Marry Carty RBC 4.80 106/ul Normal 4.20-5.40 [facility] Comment on above: Performed By: #### C BC #### [facility] [address] [place] [address] Dr. Marry Carty WBC 9.4 103/ul Normal 4.0-11.0 [facility] Comment on above: Performed By: #### C BC #### [facility] [address] [place] [address] Dr. Marry Carty D-DIMERon 02-19-2023 D-DIMER 0.22 mg/L FEU Normal <=0.59 [facility] Comment on above: Performed By: #### D DIM #### [facility] [address] [place] [address] Dr. Marry Carty D-DIMER COMMENTS SEE BELOW Normal [facility] Comment on above: Result Comment: Incr eases in D-Dimer concentration observed with thromboembolic events can be variable due to localization, size, and age of the thrombus. Therefore, a thromboembolic event cannot be diagnosed with certainty on the basis of the reference range. D-Dimers may also be elevated for a variety of disorders including: advanced age, , coronary disease, cancer, liver disease, infection, inflammation, hematoma, DIC, trauma, post-surgery, diabetes, thrombolytic or anticoagulant therapy, stress, and generalized hospitalization. Performed By: #### D DIM #### [facility] [address] [place] [address] Dr. Marry Carty PROF 14(COMP METB)on 023 Albumin [Mass/Vol] 4.1 g/dL Normal 3.4-5.0 [facility] Comment on above: Performed By: #### H EVIN, CMP #### [facility] [address] [place] [address] Dr. Marry Carty Albumin/Globulin [Mass ratio] 1.1 {ratio} Normal [facility] Comment on above: Performed By: #### H EVIN, CMP #### [facility] [address] [address] [address] Marry Carty ALP [Catalytic activity/Vol] 114 U/L Normal 46-116 [facility] Comment on above: Performed By: #### H STROPN, CMP #### [facility] [address] [address] [address] Marry Carty ALT [Catalytic activity/Vol] 10 U/L Critically low 14-59 [facility] Comment on above: Performed By: #### H STROPN, CMP #### [facility] [address] [address] [address] Marry Carty Anion gap [Moles/Vol] 11.9 mmol/L Normal [facility] Comment on above: Performed By: #### H STROPN, CMP #### [facility] [address] [address] [address] Marry Carty AST [Catalytic activity/Vol] 13 U/L Critically low 15-37 [facility] Comment on above: Performed By: #### H STROPN, CMP #### [facility] [address] [address] [address] Marry Carty Bilirubin [Mass/Vol] 0.3 mg/dL Normal 0.2-1.0 [facility] Comment on above: Performed By: #### H STROPN, CMP #### [facility] [address] [address] [address] Marry Carty Calcium [Mass/Vol] 8.6 mg/dL Normal 8.5-10.1 [facility] Comment on above: Performed By: #### H STROPN, CMP #### [facility] [address] [address] [address] Marry Carty Chloride [Moles/Vol] 102 mmol/L Normal 98-107 [facility] Comment on above: Performed By: #### H STROPN, CMP #### [facility] [address] [address] [address] Marry Carty CO2 [Moles/Vol] 26.5 mmol/L Normal 21.0-32.0 [facility] Comment on above: Performed By: #### H STROPN, CMP #### [facility] [address] [address] [address] Marry Carty Creatinine [Mass/Vol] 0.71 mg/dL Normal 0.55-1.02 [facility] Comment on above: Performed By: #### H STROPN, CMP #### [facility] [address] [address] [address] Marry Carty EGFR-AF SAMOAN >60 Normal >=60 [facility] Comment on above: Performed By: #### H STROPN, CMP #### [facility] [address] [address] [address] Marry Carty EGFR-NON AF SAMOAN >60 Normal >=60 [facility] Comment on above: Performed By: #### H STROPN, CMP #### [facility] [address] [address] [address] Marry Carty Globulin (S) [Mass/Vol] 3.6 g/dL Normal [facility] Comment on above: Performed By: #### H STROPN, CMP #### [facility] [address] [address] [address] Marry Carty Glucose [Mass/Vol] 95 mg/dL Normal 74-106 [facility] Comment on above: Performed By: #### H STROPN, CMP #### [facility] [address] [address] [address] Marry Carty Potassium [Moles/Vol] 3.4 mmol/L Critically low 3.5-5.1 [facility] Comment on above: Performed By: #### H STROPN, CMP #### [facility] [address] [address] [address] Marry Carty Protein [Mass/Vol] 7.7 g/dL Normal 6.4-8.2 [facility] Comment on above: Performed By: #### H STROPN, CMP #### [facility] [address] [address] [address] Marry Carty Sodium [Moles/Vol] 137 mmol/L Normal 136-145 [facility] Comment on above: Performed By: #### H STROPN, CMP #### [facility] [address] [address] [address] Marry Carty Urea nitrogen [Mass/Vol] 7.0 mg/dL Normal 7.0-18.0 [facility] Comment on above: Performed By: #### H LULUPN, CMP #### [facility] [address] [address] [address] Marry Carty Urea nitrogen/Creatinine [Mass ratio] 9.9 mg/mg Normal [facility] Comment on above: Performed By: #### H LULUPN, CMP #### [facility] [address] [address] [address] Marry Carty TROPONIN, HIGH SENSITIVITYon 02-19-2023 HSTROP 4.1 pg/mL Normal 4.0-51.3 [facility] Comment on above: Result Comment: CUT- OFF POINTS HAVE BEEN ESTABLISHED BASED ON THE FOURTH UNIVERSAL DEFINITIONS OF MYOCARDIAL INFARCTION. THE UPPER REFERENCE LIMIT (URL) OF TROPONIN, DEFINED THE 99TH PERCENTILE OF cTnI DISTRIBUTION IN A REFERENCE POPULATION, HAS BEEN CONFIRMED THE DECISION THRESHOLD FOR MA DIAGNOSIS. Performed By: #### H EVIN, CMP #### [facility] [address] [address] [address] Marry Carty XR CHEST 1 Von 02-19-2023 XR CHEST 1 V CXR HISTORY: Shortness of breath. COMPARISON: None. TECHNIQUE: 1 view of the chest submitted for review. FINDINGS: Interstitial opacity developing in the left lung base. The lungs are hyperaerated. The cardiac silhouette measures within normal. Pulmonary vascularity is unremarkable. Osseous structures are normal for age. IMPRESSION: Interstitial opacity developing in the left lung base. Please correlate for pneumonia versus atelectasis. Electronically authenticated by: JASMIN CRUZ Date: 2023-02-19 00:10 Normal [facility] PAP ACOG PANEL 2: 21 to 27on 03-03-2022 . . Normal [facility] Comment on above: Performed By: #### [id number] #### [facility] [address] [address] [address] Marry Carty Age Gdln ACOG Testing 21-29 Normal [facility] Comment on above: Performed By: #### [id number] #### [facility] [address] [place] [address] Dr. Marry Carty DIAGNOSIS: Comment Normal [facility] Comment on above: Result Comment: NEGA TIVE FOR INTRAEPITHELIAL LESION OR MALIGNANCY. CELLULAR CHANGES ASSOCIATED WITH INFLAMMATION ARE PRESENT. Performed By: #### [id number] #### [facility] [address] [place] [address] Dr. Marry Carty Methodology: Comment Normal [facility] Comment on above: Result Comment: This liquid based ThinPrep(R) pap test was screened with the use of an image guided system. Performed By: #### [id number] #### [facility] [address] [place] [address] Dr. Marry Carty Note: Comment Normal [facility] Comment on above: Result Comment: The Pap smear is a screening test designed to aid in the detection of premalignant and malignant conditions of the uterine cervix. It is not a diagnostic procedure and should not be used as the sole means of detecting cervical cancer. Both false-positive and false-negative reports do occur. . Performed By: #### [id number] #### [facility] [address] [place] [address] Dr. Marry Carty Performed by: Comment Normal [facility] Comment on above: Result Comment: Lashawn Syed Machine Shop Instructor (ASCP) Performed By: #### [id number] #### [facility] [address] [place] [address] Dr. Marry Carty Reflex Criteria: Comment Normal [facility] Comment on above: Result Comment: The HPV DNA reflex criteria were not met with this specimen result therefore, no HPV testing was performed. . Performed By: #### [id number] #### [facility] [address] [place] [address] Dr. Marry Carty Specimen adequacy: Comment Normal [facility] Comment on above: Result Comment: Sati sfactory for evaluation. Endocervical and/or squamous metaplastic cells (endocervical component) are present. Performed By: #### [id number] #### [facility] [address] [place] [address] Dr. Marry Carty Vital Signs Date Time Vital Sign Value Performing Clinician Frances watts 11-19-2023 22:30-0500 Diastolic blood pressure 57 mm[Hg] [facility] [employer] 11-19-2023 22:30-0500 Heart rate 107 /min [facility]-19-2023 22:30-0500 Respiratory rate 26 /min [facility] 11-19-2023 22:30-0500 SaO2% (BldA) [Mass fraction] 96 % [facility] [employer] 11-19-2023 22:30-0500 Systolic blood pressure 121 mm[Hg] [facility] [employer] 11-19-2023 20:09-0500 Body height 165.1 cm [facility] 11-19-2023 20:09-0500 Body mass index (BMI) [Ratio] 23.63 kg/m2 [facility] 11-19-2023 20:09-0500 Body temperature 97.81 [degF] [facility] 11-19-2023 20:09-0500 Body weight 64.41 kg [facility] Encounters Encounter Date Encounter Type Care Provider Facility Start: 11-22-2023 End: 11-22-2023 ambulatory SARA CAPPS Not Available Start: 11-19-2023 End: 11-19-2023 Emergency department patient visit [facility] ED Comment on above: Palpitations (Primar y Dx); Hyperglycemia; Dental infection Start: 05-09-2023 End: 05-09-2023 ambulatory Pallavi High Facility:[facility] Start: 02-19-2023 End: 02-19-2023 ambulatory ANGEL PLASENCIA . Facility: Start: 02-25-2022 End: 02-25-[address] NIXON KOCH . Facility:[facility] Procedures Date Procedure Procedure Detail Performing Clinician Start: 11-19-2023 Radiologic exam ches t 2 views Juan Jose Li DO Work Phone: Start: 11-19-2023 Basic metabolic pane l calcium total Angelita Arreguin PA-C Work Phone: Start: 11-19-2023 Drug tst prsmv instr mnt chem analyzers pr date Angelita Arreguin PA-C Work Phone: Start: 11-19-2023 Urinalysis microscop ic only Angelita Arreguin PA-C Work Phone: Start: 11-19-2023 Urine test visual color cmprsn meths Angelita Arreguin PA-C Work Phone: Start: 11-19-2023 Ecg routine ecg w/le ast 12 lds w/i&r Angelita Arreguin PA-C Work Phone: Start: 11-19-2023 GLUCOSE, WHOLE BLOOD Un known Provider Result Plan of Treatment Date Care Activity Detail Author Start: 04-13-2026 DTaP/Tdap/Td vaccine (2 - Td or Tdap) DTaP/Tdap/Td vaccine (2 - Td or Tdap) [facility] Start: 07-29-2023 COVID-19 Vaccine ( season) COVID-19 Vaccine () [facility] Start: 06-28-2023 Influenza vaccination Flu vaccine (# 1) [facility] Start: 2019 Screening for malign ant neoplasm of cervix Pap smear [facility] Start: 10-14-2016 Hepatitis A vaccine (2 of 2 - 2-dose series) Hepatitis A vaccine (2 of 2 - 2-dose series) [facility] Start: 10-14-2016 HPV vaccine (3 - 3-d ose series) HPV vaccine (3 - 3-dose series) [facility] Start: 2016 Hepatitis C screening Hepatitis C sc reen [facility] Start: 2013 HIV screening HIV screen [facility] Start: 2010 Depression Screen Depression Screen [facility] Start: 1999 Varicella vaccine (1 of 2 - 2-dose childhood series) Varicella vaccine (1 of 2 - 2-dose childhood series) [facility] Start: 1998 Hepatitis B vaccine (1 of 3 - 3-dose series) Hepatitis B vaccine (1 of 3 - 3-dose series) [facility] EKG 12 Lead EKG 12 Lead ECG Routine 11/19/2023 8:31 PM EST [facility] End: 11-19-2023 Hemoglobin A1c/Hemoglobin.total in Blood [facility] Comment on above: One Time for 1 Occur rences starting 11/19/2023 until 11/19/2023 Payers Date Payer Category Payer Self-pay 2023 Unknown [id number] 1998 Unknown [id number] 1998 Unknown [id number] 1998 Unknown [id number] 1959 Unknown [id number] 1959 Unknown [id number] Unknown [id number] Social History Date Type Detail Facility Start: 11-19-2023 [facility] History of tobacco use Tobacco U se Types Packs/Day Years Used Date Smoking Tobacco: Every Day E-Cigarettes Smokeless Tobacco: Never [facility] Start: 11-19-2023 Tobacco use and exposure Smokeless tobacco non-user [facility] Start: 11-19-2023 Alcohol intake Lifetime non-d shira (finding) [facility] Start: 03-17-2013 History of Social function [facility] Start: 03-17-2013 Tobacco use panel [facility] Start: 1998 Sex Assigned At Not on file B ON [facility] Hospital Discharge instructions 11-19-2023 Discharge InstructionsAttachments Note Date & Type Note Facility 11-19-2023 Hospital Discharg e instructions Juan Jose Li DO - 11/19/2023 10:55 PM EST Please follow-up with your family doctor to discuss further testing to truly diagnose diabetes. Also discussed referral to cardiology secondary to your elevated heart rate and return to the ER should you have any further concerns The following attachments cannot be sent through Care Everywhere.Palpitations (Botswanan)Hyperglycemia: General Info (Botswanan)documented in this encounter [facility] Evaluation note Note Date & Type Note Facility Evaluation note Diagnosis Palpitations- Primary Hyperglycemia Other abnormal glucose Dental infection Acute apical periodontitis of pulpal origin documented in this encounter [facility] Summary Purpose Family History No Family History Records FoundNo Family History Records FoundNo Family History Records Found Advance Directives No Advanced Directives Records FoundNo Advanced Directives Records FoundNo Advanced Directives Records Found Additional Source Comments INFORMATION SOURCE (unrecogn ized section and content) DATE CREATED AUTHOR 02/24/2023 [facility] DATE CREATED AUTHOR AUTHOR'S ORGANIZ ATION 05/21/2023 [facility] DATE CREATED AUTHOR AUTHOR'S ORGANIZ ATION 11/24/2023 [facility] EPIC Reason for Visit (unrecogniz ed section and content) Reason Comments Hyperglycemia Pt states heart raci ng and mother notes pt was pale. Checked blood sugar at home and was FSBS 292. Pt denies hx of diabetes. Ordered Prescriptions (unrec ognized section and content) Prescription Sig Dispensed Refills Start Date End Da te metFORMIN (GLUCOPHAGE) 500 MG tablet Take 1 tablet by mouth 2 times daily (with meals) 60 tablet 0 11/19/2023 12/19/2023 clindamycin (CLEOCIN) 300 MG capsule Take 1 capsule by mouth 4 times daily for 10 days 40 capsule 0 11/19/2023 11/29/2023 Scheduled Active and Recently Administ ered Medications (unrecognized section and content) Medication Order 11/17/2023 11/18/2023 11/19/2023 clindamycin (CLEOCIN) capsule 300 mg (COMPLETED) 300 mg, Oral, ONCE, 1 dose, On 11/19/23 at 2300, Antimicrobial Indications: Head and Neck Infection 2300 (Given - Provid er: Edwin Knight RN) LORazepam (ATIVAN) injection 1 mg (COMPLETED) 1 mg, IntraVENous, ONCE, 1 dose, On 11/19/23 at 2115, Immediately prior to intravenous use, lorazepam Injection must be diluted with at least an equal volume of compatible solution (NS or D5W). 2155 (Given - Provid er: Edwin Knight RN) sodium chloride 0.9 % bolus 1,000 mL (COMPLETED) 1,000 mL, IntraVENous, at 495.9 mL/hr, Administer over 121 Minutes, ONCE, On 11/19/23 at 2015, For 1 dose, For adult patients weighing > 55 kg (120 lbs.) and less than <50 years of age initiate 0.9NS at 500 mL/ hr. All bolus orders are to be given over 10 to 15 minutes 2054 (New Bag - Prov ider: Edwin Knight RN)2255 (Stopped - Provider: Edwin Knight RN) FOR RECORDS PERTAINING TO PATIENTS WHO ARE OR HAVE BEEN ENROLLED IN A CHEMICAL DEPENDENCY/SUBSTANCEABUSE PROGRAM, SOME INFORMATION MAY BE OMITTED. This clinical summary was aggregated from multiple sources. Caution should be exercised in using it in the provision of clinical care. This summary normalizes information from multiple sources, and as a consequence, information in this document may materially change the coding, format and clinical context of patient data. In addition, data may be omitted in some cases. CLINICAL DECISIONS SHOULD BE BASED ON THE PRIMARY CLINICAL RECORDS. [facility]. provides no warranty or guarantee of the accuracy or completeness of information in this document.
[2023-12-03 18:29] LABS: Glucometer 93 mg/dL (74-106)
[2023-12-03] MEDS: BENZOCAINE 30 ML, lidocaine HCL 15 ML MM (18:44)
--- NOTE | 2023-12-03 19:31 | ED.DENTAL1 ---
HPI - Dental/Oral General Chief complaint: Dental/Oral Stated complaint: TOOTH PAIN Time Seen by Provider: 12/03/23 18:18 Source: patient Mode of arrival: walk-in History of Present Illness HPI Narrative: The patient was initially seen by Dr. Levy and signed out to me after discussing the case with him thoroughly. Please see his full and physical. Related Data Home Medications Medication Instructions Recorded Confirmed fluoxetine 10 mg capsule 10 mg PO DAILY 05/09/23 12/03/23 benzonatate 200 mg capsule 200 mg PO TID 12/03/23 12/03/23 fluticasone propionate 50 1 spray intranasal DAILY 12/03/23 12/03/23 mcg/actuation nasal spray,suspension metformin 500 mg tablet 500 mg PO BID 12/03/23 12/03/23 prednisone 10 mg tablet 10 mg PO DAILY 12/03/23 12/03/23 rizatriptan 10 mg tablet 10 mg PO Q2H PRN migraine headache 12/03/23 12/03/23 Previous Rx's Medication Instructions Recorded penicillin V potassium 250 mg 250 mg PO QID 10 days #40 tabs 12/03/23 tablet Allergies Allergy/AdvReac Type Severity Reaction Status Date / Time No Known Drug Allergies Allergy Verified 09/20/23 19:24 PFSH PFSH Social History Smoking status: Current every day smoker Exam Constitutional Vital Signs, click to edit/add: Last Vital Signs Temp 98.3 F 12/03/23 18:19 Pulse 103 H 12/03/23 18:19 Resp 16 12/03/23 18:19 BP 142/84 H 12/03/23 18:19 Pulse Ox 97 12/03/23 18:19 O2 Del Method Room Air 12/03/23 18:19 Course Vital Signs Vital signs: Vital Signs Temperature 98.3 F 12/03/23 18:19 Pulse Rate 103 H 12/03/23 18:19 Respiratory Rate 16 12/03/23 18:19 Blood Pressure 142/84 H 12/03/23 18:19 Pulse Oximetry 97 12/03/23 18:19 Oxygen Delivery Method Room Air 12/03/23 18:19 Temperature 98.3 F 12/03/23 18:19 Pulse Rate 103 H 12/03/23 18:19 Respiratory Rate 16 12/03/23 18:19 Blood Pressure 142/84 H 12/03/23 18:19 Pulse Oximetry 97 12/03/23 18:19 Oxygen Delivery Method Room Air 12/03/23 18:19 MDM - Dental/Oral MDM Narrative Medical decision making narrative: the following procedure was performed by me after topical anesthetic had been applied. Sterile needle was utilized to puncture the gingival abscess and a small amount of drainage occurred. She tolerated the procedure well, no complications. She will follow up promptly with her dentist and was prescribed penicillin. Treatment diagnosis and follow-up were discussed with the patient. Differential Diagnosis Differential diagnosis: Likely gingival abscess, toothache and dental abscess Lab Data Attestation: I reviewed the patient's lab results. Labs: Lab Results 12/03/23 Range/Units 18:27 POC Glucose 93 (74-106) mg/dL Discharge Plan Discharge Chief Complaint: Dental/Oral Clinical Impression: Gingival abscess Patient Disposition: Home, Self-Care Time of Disposition Decision: 19:30 Condition: Good Mode of Transportation: Private Vehicle Prescriptions / Home Meds: New penicillin V potassium 250 mg tablet 250 mg PO QID 10 Days Qty: 40 0RF No Action fluoxetine 10 mg capsule 10 mg PO DAILY benzonatate 200 mg capsule 200 mg PO TID fluticasone propionate 50 mcg/actuation spray,suspension 1 spray INTRANASAL DAILY metformin 500 mg tablet 500 mg PO BID prednisone 10 mg tablet 10 mg PO DAILY rizatriptan 10 mg tablet 10 mg PO Q2H PRN (Reason: migraine headache) Instructions: Dental Abscess (ED) Stand Alone Forms: Portal Instructions Referrals: GIACOMO CAPPS [Primary Care Provider] - 1 week
[2023-12-03 19:47] VITALS: BP 122/78; PULSE 98; RESP 18; TEMP 37; O2SAT 100
== END 2023-12-03 19:48 | disposition home or self-care (01) ==
PROVIDERS: Emergency Medicine Emergency Medical Services; Emergency Provider Emergency Medicine; PCP Family Medicine
DX: K05.20 Aggressive periodontitis, unspecified (principal); Z79.899 Other long term (current) drug therapy; Z79.84 Long term (current) use of oral hypoglycemic drugs; F17.210 Nicotine dependence, cigarettes, uncomplicated
CPT/HCPCS: 36415; 36416; 41800; 82948; 99284

== ENCOUNTER 2025-02-06 05:28 | Emergency (ER) | payer OTHER, SELFPAY ==
[2025-02-06 05:32] VITALS: BP 130/89; PULSE 96; TEMP 36.9; O2SAT 100; BMI 22.5
--- OUTSIDE RECORDS SUMMARY | 2025-02-06 05:45 | XMS_ITS | CCD ---
Author Organization [facility] Care Team Providers Care Belt Builder Helper Name Role Phone LUIS ANGEL ., ANGEL Admitting Unavailable LUIS ANGEL ., ANGEL Consulting Unavailable LUIS ANGEL ., ANGEL Attending Unavailable JEFRY, DR GOODEN Primary Care Unavailable JASMIN CRUZ Consulting Unavailable AUGUST ., DR ALICEA Admitting Unavailable AUGUST ., DR ALICEA Consulting Unavailable AUGUST ., DR ALICEA Attending Unavailable REQUEST, NONE LISTED Primary Care UnavailPallavi Chavez Attending Unavailable Pallavi High Admitting Unavailable Sara Capps Primary Care Unavailable Unavailable Primary Care Provider UnavailJAILYN Almanza Attending Unavailable JAILYN MUNROE Referring Unavailable SARA CAPPS Attending Unavailable Sara Capps MD Primary Care Provider Jailyn Ackerman Unavailable Medications Current Medications Medication Drug Class(es) Dates Sig (Normalized) Sig (Original) FLUoxetine 20 mg oral capsule (1 source) Serotonin Reuptake Inhibitor Start: 11-22-2023 take 1 capsule by mouth once daily FLUoxetine (PROzac) 20 MG capsule Indications: Adjustment disorder with depressed mood (CMS/HCC) TAKE 1 CAPSULE BY MOUTH EVERY DAY FOR 90 DAYS 30 capsule 11 11/22/2023 Active fluticasone propionate 0.05 mg/actuat metered dose nasal spray (2 sources) Corticosteroid Start: 01-02-2024 take 1 spray(s) nasal route in the morning fluticasone (Flonase) 50 MCG/ACT nasal spray Indications: URI with cough and congestion Administer 1 spray into each nostril in the morning. 16 mL 5 01/02/2024 Active Start: 12-03-2023 End: 01-02-2024 take 1 spray(s) nasal route in the morning fluticasone (Flonase) 50 MCG/ACT nasal spray Indications: URI with cough and congestion Administer 1 spray into each nostril in the morning. Shake gently. Before first use, prime pump. After use, clean tip and replace cap.. 16 g 0 12/03/2023 01/02/2024 Discontinued levonorgestrel 0.719898 mg/hr intrauterine system (1 source) Progestin, Progestin-containing Intrauterine Device Levonorgestrel (Mirena, 52 MG,) 20 MCG/DAY intrauterine device Intrauterine 0 Active metFORMIN hydrochloride 500 mg oral tablet (1 source) Biguanide Start: 2022 End: 2023 take 1 tablet by mouth twice daily at mealtime metFORMIN (GLUCOPHAGE) 500 MG tablet Take 1 tablet by mouth 2 times daily (with meals) 60 tablet 0 11/19/2023 12/19/2023 Active rizatriptan 10 mg oral tablet (1 source) Serotonin-1b and Serotonin-1d Receptor Agonist Start: 2022 rizatriptan (Maxalt) 10 MG tablet Indications: Migraine without aura and without status migrainosus, not intractable (CMS/HCC) Take 1 tablet (10 mg) by mouth 1 (one) time if needed for migraine. May repeat in 2 hours if unresolved. Do not exceed 30 mg in 24 hours. 9 tablet 5 05/20/2023 Active Completed/Discontinued Medications Medication Drug Class(es) Dates [...] Classification Problem Date Documented Da te Episodic/Chronic Adjustment disorders (1 source) Adjustment disorder with depressed mood; Translations: [Adjustment disorder with depressed mood] Onset: 05-04-2023 05-04-2023 Chronic Cardiac dysrhythmias (1 source) Palpitations; Translations: [Palpitations] 11-19-2023 Episodic Diabetes mellitus without complication (2 sources) Hyperglycemia; Translations: [Hyperglycemia, unspecified] Onset: 11-22-2023 11-19-2023 Episodic Disorders of teeth and jaw (2 sources) Infection of tooth; Translations: [Periapical abscess without sinus] Onset: 11-22-2023 11-19-2023 Episodic Headache; including migraine (1 source) Migraine without aura, not refractory ; Translations: [Migraine without aura, not intractable, without status migrainosus] Onset: 05-04-2023 05-04-2023 Chronic Nonspecific chest pain (3 sources) Chest pain, unspecified; Translations: [CHEST PAIN UNSPECIFIED] Onset: 02-19-2023 Episodic Other lower respiratory disease (1 source) Shortness of breath; Translations: [Shortness of breath] Onset: 05-09-2023 Episodic Other nutritional; endocrine; and metabolic disorders (1 source) Obesity; Translations: [Obesity, unspecified] Onset: 05-04-2023 05-04-2023 Chronic Other nutritional; endocrine; and metabolic disorders (1 source) Weight loss; Translations: [Abnormal weight loss] Onset: 11-22-2023 11-22-2023 Episodic Other upper respiratory infections (1 source) Upper respiratory infection; Translations: [Acute upper respiratory infection, unspecified] 12-30-2023 Episodic Pleurisy; pneumothorax; pulmonary collapse (1 source) [...] SCREENING MALIG NEOPLASM CERV] Onset: 02-25-2022 Episodic Other upper respiratory infections (1 source) Sinusitis; Translations: [Chronic sinusitis, unspecified] Onset: 05-04-2023 Resolved: 05-10-2023 05-10-2023 Chronic Results Test Name Value Interpretation Reference Range Facility XR CHEST 2 VIEWSon 4 XR CHEST 2 VIEWS EXAMINATION: XR CHES T 2 VIEWS HISTORY: pneumonia TECHNIQUE: Frontal and lateral views of the chest. COMPARISON: None available FINDINGS: Cardiomediastinal silhouette is within normal limits. No pneumothorax, pleural effusion, or consolidation. No acute osseous abnormality. IMPRESSION: No radiographic evidence of acute intrathoracic process. ELECTRONICALLY SIGNED BY: Lee Witt, DO Normal Not Available Basic Metabolic Panelon 10-29 Anion gap [Moles/Vol] 13 mmol/L 9 - 17 mmol/L [facility] Calcium [Mass/Vol] 9.4 mg/dL 8.6 - 10. 4 mg/dL [facility] Chloride [Moles/Vol] 96 mmol/L Low 98 - 10 7 mmol/L [facility] CO2 [Moles/Vol] 24 mmol/L 20 - 31 mmol/L [facility] Creatinine [Mass/Vol] 0.9 mg/dL 0.5 - 0.9 mg/dL [facility] GFR/1.73 sq M.predicted MDRD (S/P/Bld) [Vol rate/Area] - PINF [facility] Comment on above: These results are not [...] 302 mg/dL High 70 - 99 mg/dL [facility] Interpretation and review of laboratory results Abnormal [facility] Potassium [Moles/Vol] 3.2 mmol/L Low 3.7 - 5.3 mmol/L [facility] Sodium [Moles/Vol] 133 mmol/L Low 135 - 144 mmol/L [facility] Urea nitrogen [Mass/Vol] 12 mg/dL 6 - 20 mg/dL [facility] Urea nitrogen/Creatinine [Mass ratio] 13 mg/mg 9 - 20 [facility] Beta-Hydroxybutyrateon 11-19 Beta hydroxybutyrate [Mass/Vol] 0.06 mmol/L 0.02 - 0.27 mmol/L [facility] CBC with Auto Differentialon 11-19-2023 Basophils (Bld) [#/Vol] 0.05 10*3/uL [facility] Basophils/100 WBC (Bld) 0 % 0 - 2 % [facility] Eosinophils (Bld) [#/Vol] [facility] Eosinophils/100 WBC (Bld) 0 % Low 1 - 4 % [facility] Erythrocyte distribution width (RBC) [Ratio] 11.5 % Low 11.8 - 14.4 % [facility] Hematocrit (Bld) [Volume fraction] 41.3 % 36.3 - 47.1 % [facility] Hemoglobin (Bld) [Mass/Vol] 13.7 g/dL 11.9 - 15.1 g/dL [facility] Immature granulocytes (Bld) [#/Vol] 0.06 10*3/uL [facility] Immature granulocytes/100 WBC (Bld) 0 % 0 [facility] Interpretation and review of laboratory results Abnormal [facility] Lymphocytes/100 WBC (Bld) 8 % Low 24 - 43 % [facility] Lymphocytes/100 WBC (Bld) 1.21 % [facility] MCH (RBC) [Entitic mass] 29.1 pg 25.2 - 33.5 pg [facility] MCHC (RBC) [Mass/Vol] 33.2 g/dL 28.4 - 34.8 g/dL [facility] MCV (RBC) [Entitic vol] 87.7 fL 82.6 - 102.9 fL [facility] Monocytes/100 WBC (Bld) 5 % 3 - 12 % [facility] Monocytes/100 WBC (Bld) 0.73 % [facility] Neutrophils/100 WBC (Bld) 87 % High 36 - 65 % [facility] Nucleated RBC/100 WBC (Bld) [Ratio] 0.0 % 0.0 per 100 WBC [facility] Platelet mean volume (Bld) [Entitic vol] 10.5 fL 8.1 - 13.5 fL [facility] Platelets (Bld) [#/Vol] 263 10*3/uL [facility] RBC (Bld) [#/Vol] 4.71 10*6/uL 3.95 - 5.1 1 m/uL [facility] Segmented neutrophils/100 WBC (Bld) 13.87 % High [facility] WBC other (Bld) [#/Vol] 15.9 High [facility] D-Dimer, Quantitativeon 10-29 Fibrin D-dimer FEU (PPP) [Mass/Vol] 0.30 [facility] Comment on above: When combined with [...] more prevalent in patients with distal DVT. [facility] [employer] [email or web address] Drug screen multi urineon Amphetamines Ql (U) Negative NEGATIVE [facility] S [facility] [employer] Comment on above: (Positive cutoff 1000 ng/mL) Barbiturates Screen Ql (U) Negative NEGATIVE [facility] [employer] [facility] Comment on above: (Positive cutoff 200 ng/mL) Benzodiazepines Ql (U) Negative NEGATIVE [facility] SECOURS [facility] Comment on above: (Positive cutoff 200 ng/mL) Buprenorphine Ql (U) Negative NEGATIVE [facility] [employer] [facility] Comment on above: (Positive cutoff 5 ng/ml) Cannabinoids Screen Ql (U) Positive Abnormal NEGATIVE [facility] Comment on above: (Positive cutoff 50 ng/mL) Cocaine Ql (U) Negative NEGATIVE [facility] SECOUR S [facility] Comment on above: (Positive cutoff 300 ng/mL) fentaNYL Ql (U) Negative NEGATIVE [facility] SECOU RS [employer] [facility] Comment on above: (Positive cutoff 5 ng/ml) Interpretation and review of laboratory results Abnormal [facility] Methadone Ql (U) Negative NEGATIVE [facility] SECO URS [employer] [facility] Comment on above: (Positive cutoff 300 ng/mL) Opiates Screen Ql (U) Negative NEGATIVE [facility] [employer] [facility] Comment on above: (Positive cutoff 300 ng/mL) oxyCODONE Ql (U) Negative NEGATIVE [facility] SECO URS [employer] [facility] Comment on above: (Positive cutoff 100 ng/mL) Phencyclidine Ql (U) Negative NEGATIVE [facility] [employer], Comment on above: (Positive cutoff 25 ng/mL) Test Information Assay provides medical screening only. The absence of expected drug(s) and/or metabolite(s) may indicate diluted or adulterated urine, limitations of testing or timing of collection. [facility] [employer], Comment on above: Testing for legal pu rposes should be confirmed by another method. To request confirmation of test result, please call the lab within 7 days of sample submission. [facility] Glucose, Whole Bloodon 11-19 Glucose [Mass/Vol] 286 mg/dL High 74 - 100 mg/dL [facility] Interpretation and review of laboratory results Abnormal [facility] [employer] [facility] Magnesiumon 11-19-2023 Magnesium [Mass/Vol] 1.6 mg/dL 1.6 - 2 .6 mg/dL [facility] Microscopic Urinalysison Bacteria LM Ql (Urine sed) 1+ Abnormal None [facility] Epithelial cells LM.HPF (Urine sed) [#/Area] 2 TO 5 [facility] Interpretation and review of laboratory results Abnormal [facility] RBC LM.HPF (Urine sed) [#/Area] 0 TO 2 [facility] WBC LM.HPF (Urine sed) [#/Area] 2 TO 5 [facility] No Panel Informationon 11-19 [facility] , Urineon 3 HCG ( test) Ql (U) Negative NEGATIVE [facility] Comment on above: Specimens with hCG l evels near the threshold of the test (25 mIU/mL) may give a negative or indeterminate result. In such cases, another test should be performed with a new specimen in 48-72 hours. If early is suspected clinically in this setting, correlation with quantitative serum b-hCG level is suggested. [employer] has confirmed the use of plasma for this test. This has not been cleared or approved by the U.S. Food and Drug Administration. The FDA has determined that such clearance is not necessary. [facility] TSHon 11-19-2023 TSH Qn 0.88 m[IU]/L [facility] Urinalysis with Reflex to Cu ltureon 11-19-2023 Bilirubin Ql (U) Negative NEGATIVE [facility] Clarity (U) Clear Clear [facility] Color (U) Yellow Yellow [facility] Glucose Test strip (U) [Mass/Vol] 3+ Abnormal NEGATIVE mg/dL [facility] Hemoglobin Auto test strip Ql (U) Negative NEGATIVE [facility] Interpretation and review of laboratory results Abnormal [facility] Ketones (U) [Mass/Vol] Negative NEGATIVE mg/dL [facility] Leukocyte esterase Test strip Ql (U) TRACE Abnormal NEGATIVE [facility] Nitrite Ql (U) Negative NEGATIVE [facility] pH (U) 6.0 [pH] 5.0 - 9.0 [facility] Protein (U) [Mass/Vol] Negative NEGATIVE mg/dL [facility] Specific gravity (U) [Rel density] Low 1.010 - 1.020 [facility] Urobilinogen Qn (U) Normal 0.0 - 1. 0 EU/dL [facility] XR Chest 2 Viewson 3 No radiographic evidence of acute pulmonary abnormality seen. [facility] RIS CONSOLIDATED EXAMINATION: TWO XRAY VIEWS OF THE CHEST 11/19/2023 9:09 pm COMPARISON: None. HISTORY: ORDERING SYSTEM PROVIDED HISTORY: cough TECHNOLOGIST PROVIDED HISTORY: cough FINDINGS: The cardiac silhouette appears within normal limits. No confluent airspace opacity, pleural effusion, or pneumothorax is seen. [facility] CONSOLIDATED Jose Covarrubias MD - 11/19/2023 EXAMINATION: TWO XRAY VIEWS OF THE CHEST 11/19/2023 9:09 pm COMPARISON: None. HISTORY: ORDERING SYSTEM PROVIDED HISTORY: cough TECHNOLOGIST PROVIDED HISTORY: cough FINDINGS: The cardiac silhouette appears within normal limits. No confluent airspace opacity, pleural effusion, or pneumothorax is seen. IMPRESSION: No radiographic evidence of acute pulmonary abnormality seen. [facility] Radiology Study observation (narrative) [facility] XR Chest 2 ViewsOrdered By: Jose Covarrubias on 11-19-2023 [facility] Work Phone: D-Dimer High Sensitivityon 0 05-09-2023 D-Dimer High Sensitivity < 200 Normal 0-243 [facility] Comment on above: Result Comment: The reference [...] patients due to co-morbid conditions. PERFORMED BY: [facility] [address] [place] [address] PATHOLOGIST ENVIRONMENTAL RESOURCE SPECIALIST ROMAIN HOOKS M.D. Performed By: #### D DIMER #### [facility] [address] CBC AUTO DIFFon 02-19-2023 BASO # 0.0 103/ul Normal 0.0-0.1 [facility] Comment on above: Performed By: #### C BC #### [facility] [address] [address] [address] Marry Carty Basophils/100 WBC (Bld) 0.4 % Normal 0.2-2.0 [facility] Comment on above: Performed By: #### C BC #### [facility] [address] [address] [address] Marry Carty EO # 0.2 103/ul Normal 0.0-0.7 [facility] Comment on above: Performed By: #### C BC #### [facility] [address] [place] [address] Dr. Marry Carty Eosinophils/100 WBC (Bld) 1.6 % Normal 0.9-7.0 [facility] Comment on above: Performed By: #### C BC #### [facility] [address] [place] [address] Dr. Marry Carty Erythrocyte distribution width (RBC) [Ratio] 11.9 % Normal 11.0-15.0 [facility] Comment on above: Performed By: #### C BC #### [facility] [address] [place] [address] Dr. Marry Carty Hematocrit (Bld) [Volume fraction] 41.8 % Normal 36.0-48.0 [facility] Comment on above: Performed By: #### C BC #### [facility] [address] [place] [address] Dr. Marry Carty Hemoglobin (Bld) [Mass/Vol] 13.8 g/dL Normal 12.0-16.0 [facility] Comment on above: Performed By: #### C BC #### [facility] [address] [place] [address] Dr. Marry Carty IG # 0.03 10e3/ul Normal 0.00-0.03 [facility] Comment on above: Performed By: #### C BC #### [facility] [address] [place] [address] Dr. Marry Carty IG % 0.3 % Normal 0.0-0.5 [facility] Comment on above: Performed By: #### C BC #### [facility] [address] [place] [address] Dr. Marry Carty LYMPH # 2.6 103/ul Normal 1.2-3.8 [facility] Comment on above: Performed By: #### C BC #### [facility] [address] [place] [address] Dr. Marry Carty Lymphocytes/100 WBC (Bld) 28.1 % Normal 20.5-60.0 [facility] Comment on above: Performed By: #### C BC #### [facility] [address] [place] [address] Dr. Marry Carty MANUAL DIFF REQ NO Normal [facility] Comment on above: Performed By: #### C BC #### [facility] [address] [place] [address] Dr. Marry Carty MCH (RBC) [Entitic mass] 28.8 pg Normal 26.7-34.0 [facility] Comment on above: Performed By: #### C BC #### [facility] [address] [place] [address] Dr. Marry Carty MCHC (RBC) [Mass/Vol] 33.0 g/dL Normal 29.9-35.2 [facility] Comment on above: Performed By: #### C BC #### [facility] [address] [place] [address] Dr. Marry Carty MCV (RBC) [Entitic vol] 87.1 fL Normal 81.0-99.0 [facility] Comment on above: Performed By: #### C BC #### [facility] [address] [place] [address] Dr. Marry Carty MONO # 0.5 103/ul Normal 0.3-0.8 [facility] Comment on above: Performed By: #### C BC #### [facility] [address] [place] [address] Dr. Marry Carty Monocytes/100 WBC (Bld) 5.8 % Normal 1.7-12.0 [facility] Comment on above: Performed By: #### C BC #### [facility] [address] [place] [address] Dr. Marry Carty NEUT # 6.0 103/ul Normal 1.4-6.5 [facility] Comment on above: Performed By: #### C BC #### [facility] [address] [place] [address] Dr. Marry Carty Neutrophils/100 WBC (Bld) 63.8 % Normal 43.0-75.0 [facility] Comment on above: Performed By: #### C BC #### [facility] [address] [place] [address] Dr. Marry Carty Platelet mean volume (Bld) [Entitic vol] 9.9 fL Normal 9.5-13.5 [facility] Comment on above: Performed By: #### C BC #### [facility] [address] [place] [address] Dr. Marry Carty PLT 250 103/ul Normal 150-450 [facility] Comment on above: Performed By: #### C BC #### [facility] [address] [place] [address] Dr. Marry Carty RBC 4.80 106/ul Normal 4.20-5.40 [facility] Comment on above: Performed By: #### C BC #### [facility] [address] [place] [address] Dr. Marry Carty WBC 9.4 103/ul Normal 4.0-11.0 [facility] Comment on above: Performed By: #### C BC #### [facility] [address] [place] [address] Dr. Marry Carty D-DIMERon 02-19-2023 D-DIMER 0.22 mg/L FEU Normal <=0.59 [facility] Comment on above: Performed By: #### D DIM #### [facility] [address] [place] [address] Dr. Marry Carty D-DIMER COMMENTS SEE BELOW Normal [facility] Comment on above: Result Comment: Incr eases [...] hospitalization. Performed By: #### D DIM #### [facility] [address] [place] [address] Dr. Marry Carty PROF 14(COMP METB)on 023 Albumin [Mass/Vol] 4.1 g/dL Normal 3.4-5.0 [facility] Comment on above: Performed By: #### H STROPN, CMP #### [facility] [address] [place] [address] Dr. Marry Carty Albumin/Globulin [Mass ratio] 1.1 {ratio} Normal [facility] Comment on above: Performed By: #### H STROPN, CMP #### [facility] [address] [place] [address] Dr. Marry Carty ALP [Catalytic activity/Vol] 114 U/L Normal 46-116 [facility] Comment on above: Performed By: #### H LULUPN, CMP #### [facility] [address] [place] [address] Dr. Marry Carty ALT [Catalytic activity/Vol] 10 U/L Critically low 14-59 [facility] Comment on above: Performed By: #### H STROPN, CMP #### [facility] [address] [place] [address] Dr. Marry Carty Anion gap [Moles/Vol] 11.9 mmol/L Normal [facility] Comment on above: Performed By: #### H STROPN, CMP #### [facility] [address] [place] [address] Dr. Marry Carty AST [Catalytic activity/Vol] 13 U/L Critically low 15-37 [facility] Comment on above: Performed By: #### H STROPN, CMP #### [facility] [address] [address] [address] Marry Carty Bilirubin [Mass/Vol] 0.3 mg/dL Normal 0.2-1.0 [facility] Comment on above: Performed By: #### H STROPN, CMP #### [facility] [address] [address] [address] Marry Carty Calcium [Mass/Vol] 8.6 mg/dL Normal 8.5-10.1 [facility] Comment on above: Performed By: #### H STROPN, CMP #### [facility] [address] [place] [address] Dr. Marry Carty Chloride [Moles/Vol] 102 mmol/L Normal 98-107 [facility] Comment on above: Performed By: #### H STROPN, CMP #### [facility] [address] [place] [address] Dr. Marry Carty CO2 [Moles/Vol] 26.5 mmol/L Normal 21.0-32.0 [facility] Comment on above: Performed By: #### H STROPN, CMP #### [facility] [address] [place] [address] Dr. Marry Carty Creatinine [Mass/Vol] 0.71 mg/dL Normal 0.55-1.02 [facility] Comment on above: Performed By: #### H STROPN, CMP #### [facility] [address] [place] [address] Dr. Marry Carty EGFR-AF MAURITIAN >60 Normal >=60 [facility] Comment on above: Performed By: #### H STROPN, CMP #### [facility] [address] [place] [address] Dr. Marry Carty EGFR-NON AF MAURITIAN >60 Normal >=60 [facility] Comment on above: Performed By: #### H STROPN, CMP #### [facility] [address] [place] [address] Dr. Marry Carty Globulin (S) [Mass/Vol] 3.6 g/dL Normal [facility] Comment on above: Performed By: #### H STROPN, CMP #### [facility] [address] [address] [address] Marry Carty Glucose [Mass/Vol] 95 mg/dL Normal 74-106 [facility] Comment on above: Performed By: #### H STROPN, CMP #### [facility] [address] [address] [address] Marry Carty Potassium [Moles/Vol] 3.4 mmol/L Critically low 3.5-5.1 [facility] Comment on above: Performed By: #### H STROPN, CMP #### [facility] [address] [place] [address] Dr. Marry Carty Protein [Mass/Vol] 7.7 g/dL Normal 6.4-8.2 [facility] Comment on above: Performed By: #### H LULUPN, CMP #### [facility] [address] [address] [address] Marry aCrty Sodium [Moles/Vol] 137 mmol/L Normal 136-145 [facility] Comment on above: Performed By: #### H STROPN, CMP #### [facility] [address] [place] [address] Dr. Marry Carty Urea nitrogen [Mass/Vol] 7.0 mg/dL Normal 7.0-18.0 [facility] Comment on above: Performed By: #### H STROPN, CMP #### [facility] [address] [place] [address] Dr. Marry Carty Urea nitrogen/Creatinine [Mass ratio] 9.9 mg/mg [facility] Comment on above: Performed By: #### H STROPN, CMP #### [facility] [address] [place] [address] Dr. Marry Carty TROPONIN, HIGH SENSITIVITYon 02-19-2023 HSTROP 4.1 pg/mL Normal 4.0-51.3 [facility] Comment on above: Result Comment: CUT- OFF POINTS HAVE BEEN ESTABLISHED BASED ON THE FOURTH UNIVERSAL DEFINITIONS OF MYOCARDIAL INFARCTION. THE UPPER REFERENCE LIMIT (URL) OF TROPONIN, DEFINED THE 99TH PERCENTILE OF cTnI DISTRIBUTION IN A REFERENCE POPULATION, HAS BEEN CONFIRMED THE DECISION THRESHOLD FOR DC DIAGNOSIS. Performed By: #### H EVIN, CMP #### [facility] [address] [place] [address] Dr. Marry Carty XR CHEST 1 Von [...] authenticated by: JASMIN CRUZ Date: 2023-02-19 00:10 [facility] PAP ACOG PANEL 2: 21 to 29on 03-03-2022 . . Normal [facility] Comment on above: Performed By: #### [id number] #### [facility] [address] [place] [address] Dr. Marry Carty Age Gdln ACOG Testing 21-29 [facility] Comment on above: Performed By: #### [id number] #### [facility] [address] [place] [address] Dr. Marry Carty DIAGNOSIS: Comment [facility] Comment on above: Result Comment: NEGA TIVE FOR INTRAEPITHELIAL LESION OR MALIGNANCY. CELLULAR CHANGES ASSOCIATED WITH INFLAMMATION ARE PRESENT. Performed By: #### [id number] #### [facility] [address] [place] [address] Dr. Marry Carty Methodology: Comment [facility] Comment on above: Result Comment: This liquid based ThinPrep(R) pap test was screened with the use of an image guided system. Performed By: #### [id number] #### [facility] [address] [place] [address] Dr. Marry Carty Note: Comment [facility] Comment on above: Result Comment: The Pap smear is a screening test designed to aid in the detection of premalignant and malignant conditions of the uterine cervix. It is not a diagnostic procedure and should not be used as the sole means of detecting cervical cancer. Both false-positive and false-negative reports do occur. . Performed By: #### [id number] #### [facility] [address] [address] [address] Marry Carty Performed by: Comment Normal [facility] Comment on above: Result Comment: Lashawn Syed, Public Relations Director (ASCP) Performed By: #### [id number] #### [facility] [address] [address] [address] Marry Carty Reflex Criteria: Comment Normal [facility] Comment on above: Result Comment: The HPV DNA reflex criteria were not met with this specimen result therefore, no HPV testing was performed. . Performed By: #### [id number] #### [facility] [address] [address] [address] Marry Carty Specimen adequacy: Comment Normal [facility] Comment on above: Result Comment: Sati sfactory for evaluation. Endocervical and/or squamous metaplastic cells (endocervical component) are present. Performed By: #### [id number] #### [facility] [address] [address] [address] Marry Carty Vital Signs Date Time Vital Sign Value Performing Clinician Frances watts 11-19-2023 22:30-0500 Diastolic blood pressure 57 mm[Hg] [facility] 11-19-2023 22:30-0500 Heart rate 107 /min [facility] 11-19-2023 22:30-0500 Respiratory rate 26 /min [facility] 11-19-2023 22:30-0500 SaO2% (BldA) [Mass fraction] 96 % [facility] 11-19-2023 22:30-0500 Systolic blood pressure 121 mm[Hg] [facility] 11-19-2023 20:09-0500 Body height 165.1 cm [facility] 11-19-2023 20:09-0500 Body mass index (BMI) [Ratio] 23.63 kg/m2 [facility] 11-19-2023 20:09-0500 Body temperature 97.81 [degF] [employer] [facility] Piper 11-19-2023 20:09-0500 Body weight 64.41 kg [facility] [employer] [facility] Encounters Encounter Date Encounter Type Care Provider Facility Start: 12-30-2023 Refill Jailyn Yessy Nova PA Work Phone: [facility] Comment on above: URI with cough and c ongestion Start: 12-03-2023 End: 12-04-2023 ambulatory JAILYN DESIRSHAYY Not Available Start: 11-22-2023 End: 11-22-2023 ambulatory SARA Krishnamurthy JEFRY Not Available Start: 11-19-2023 End: 11-19-2023 Emergency department patient visit [facility] ED Comment on above: Palpitations (Primar y Dx); Hyperglycemia; Dental infection Start: 05-09-2023 End: 05-09-2023 ambulatory Pallavi High Facility:[facility] Start: 02-19-2023 End: 02-19-2023 ambulatory ANGEL PLASENCIA . Facility: Start: 02-25-2022 End: 02-25-[address] NIXON KOCH . Facility: Procedures Date Procedure Procedure Detail Performing Clinician Start: 11-19-2023 Radiologic exam ches t 2 views Juan Jose Andes DO Work Phone: Start: 11-19-2023 Basic metabolic pane l calcium total Angelita Arreguin PA-C Work Phone: Start: 11-19-2023 Drug tst prsmv instr mnt chem analyzers pr date Angelita WHATLEY-C Work Phone: Start: 11-19-2023 Urinalysis microscop ic only Angelita WHATLEY-C Work Phone: Start: 11-19-2023 Urine test visual color cmprsn meths Angelita DEVIC Work Phone: Start: 11-19-2023 Ecg routine ecg w/le ast 12 lds w/i&r Angelita DEVIC Work Phone: Start: 11-19-2023 GLUCOSE, WHOLE BLOOD Un known Provider Result Plan of Treatment Date Care Activity Detail Author Start: 04-13-2026 DTaP/Tdap/Td vaccine (2 - Td or Tdap) DTaP/Tdap/Td vaccine (2 - Td or Tdap) [facility] Start: 07-29-2023 COVID-19 Vaccine ( season) COVID-19 Vaccine ( season) [facility] Start: 07-29-2023 Influenza vaccination Influenza Vacc ine (#1) [facility] Start: 06-28-2023 Influenza vaccination Flu vaccine (# 1) [facility] Start: 2019 Screening for malign ant neoplasm of cervix Pap smear [facility] Start: 10-14-2016 Hepatitis A vaccine (2 of 2 - 2-dose series) Hepatitis A vaccine (2 of 2 - 2-dose series) [facility] Start: 10-14-2016 HPV vaccine (3 - 3-d ose series) HPV vaccine (3 - 3-dose series) [facility] Start: 2016 Hepatitis C screening Hepatitis C sc reen [facility] Start: 2013 HIV screening HIV screen [facility] Start: 2010 Depression Screen Depression Screen [facility] Start: 1999 Varicella vaccine (1 of 2 - 2-dose childhood series) Varicella vaccine (1 of 2 - 2-dose childhood series) [facility] Start: 1998 Hepatitis B vaccine (1 of 3 - 3-dose series) Hepatitis B vaccine (1 of 3 - 3-dose series) [facility] EKG 12 Lead EKG 12 Lead ECG Routine 11/19/2023 8:31 PM EST [facility] End: 11-19-2023 Hemoglobin A1c/Hemoglobin.total in Blood [facility] Comment on above: One Time for 1 Occur rences starting 11/19/2023 until 11/19/2023 Immunizations Immunization Date Immunization Notes Care Provider Ahmet boyd 06-15-2016 Human Papillomavirus 9-valent vaccine Jailyn WHATLEY Work Phone: [facility] 06-15-2016 meningococcal B vacc ine, recombinant, OMV, adjuvanted Jailyn WHATLEY Work Phone: [facility] 04-13-2016 hepatitis A vaccine, pediatric/adolescent dosage, 2 dose schedule Jailyn WHATLEY Work Phone: [facility] 04-13-2016 Human Papillomavirus 9-valent vaccine Jailyn WHATLEY Work Phone: [facility] 04-13-2016 influenza, seasonal, injectable Jailyn WHATLEY Work Phone: [facility] 04-13-2016 meningococcal B vacc ine, recombinant, OMV, adjuvanted Jailyn WHATLEY Work Phone: [facility] 04-13-2016 tetanus toxoid, redu sophie diphtheria toxoid, and acellular pertussis vaccine, adsorbed Jailyn WHATLEY Work Phone: [facility] 04-13-2016 influenza virus vacc ine, unspecified formulation Jailyn WHATLEY Work Phone: [facility] Payers Date Payer Category Payer Self-pay 2023 Unknown [id number] 2021 Medicaid [employer] [place] [employer] [id number] 2021-Present [address] [place] [address] [id number] 2021 Unknown BCBS BCBS [id number] 2021-Present [phone] [address] [place] [address] [id number] 1998 Unknown [id number] 1998 Unknown [id number] 1998 Unknown [id number] 1998 Unknown [id number] 1998 Unknown [id number] 1959 Unknown [id number] 1959 Unknown [id number] Unknown [id number] Social History Date Type Detail Facility Start: 11-19-2023 Tobacco smoking status GAIS Smokes tobacco daily [facility] History of tobacco use Tobacco U se Types Packs/Day Years Used Date Smoking Tobacco: Every Day E-Cigarettes Smokeless Tobacco: Never [facility] Start: 05-04-2023 End: 11-19-2023 Tobacco use and exposure Smokeless tobacco non-user [facility] Start: 11-19-2023 End: 11-22-2023 Alcohol intake Lifetime non-drinker (finding) [facility] Start: 03-17-2013 End: 05-10-2023 History of Social function [facility] Start: 03-17-2013 End: 05-10-2023 Tobacco use panel [facility] Start: 1998 Sex Assigned At Not on file [facility] Start: 05-04-2023 Tobacco smoking status [facility] Never smoked tobacco [facility] Within the last year , have you been afraid of your partner or ex-partner? No [facility] Are you now , , , , never or living with a partner? Never [facility] How often to you hav e a drink containing alcohol? 2-4 times a month [facility] How many standard drinks containing alcohol do you have on a typical day? 1 or 2 [facility] How often do you hav e 6 or more drinks on 1 occasion? Less than monthly [facility] How hard is it for y ou to pay for the very basics like food, housing, medical care, and heating Not hard at all [facility] Do you feel stress - tense, restless, nervous, or anxious, or unable to sleep at night because your mind is troubled all the time - these days [OSQ] To some extent [facility] (I/We) worried [facility] (my/our) food would run out before (I/we) got money to buy more. Never true [facility] Start: 2000 Sex Assigned At Female [facility] Start: 05-10-2023 Gender identity Identifies as female gender (finding) [facility] Start: 05-10-2023 Sexual orientation Heterosexual (finding) [facility] Medical Equipment Procedure Code Equipment Code Equipment Origin al Text Equipment Identifier Dates 1 strip by In Vi tro route in the morning. [id number] Start: 11-22-2023 1 Stick in the morning. [id number] Start: 11-22-2023 Telephone encounter Note 01-02-2024 Telephone Encounter - CHACORTA iMller - 01/02/2024 9:39 AM EST Note Date & Type Note Facility 01-02-2024 Telephone encount er Note Flonase sent [facility] Healthcare Note 01-02-2024 Telephone Encounter - CHACORTA Miller - 01/02/2024 9:39 AM EST Note Date & Type Note Facility 01-02-2024 Miscellaneous Notes Formattin g of this note might be different from the original. Flonase sent documented in this encounter [facility] Discharge instructions 11-19-2023 Discharge InstructionsAttachments Note [...] attachments cannot be sent through Care Everywhere.Palpitations (Stateless)Hyperglycemia: General Info (Stateless)documented in this encounter [facility] Evaluation note Note Date & Type Note Facility Evaluation note Diagnosis Palpitations- Primary Hyperglycemia Other abnormal glucose Dental infection Acute apical periodontitis of pulpal origin documented in this encounter [facility] Evaluation note Note Date & Type Note Facility Evaluation note Diagnosis URI with cough and congestion documented in this encounter [facility] Summary Purpose Family History No Family History Records FoundNo Family History Records FoundNo Family History Records Found Advance Directives No Advanced Directives Records FoundNo Advanced Directives Records FoundNo Advanced Directives Records Found Additional Source Comments INFORMATION SOURCE (unrecogn ized section and content) DATE CREATED AUTHOR 02/24/2023 [facility] DATE CREATED AUTHOR AUTHOR'S ORGANIZ ATION 05/21/2023 [facility] DATE CREATED AUTHOR AUTHOR'S ORGANIZ ATION 12/07/2023 [facility] EPIC Reason for Visit (unrecogniz ed section and content) Reason Comments Hyperglycemia Pt states heart raci ng and mother notes pt was pale. Checked blood sugar at home and was FSBS 292. Pt denies hx of diabetes. 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 [facility] [employer] provides no warranty or guarantee of the accuracy or completeness of information in this document.
[2025-02-06 05:47] VITALS: O2SAT 100
[2025-02-06] MEDS: DEXAMETHASONE SOD PHOS 10 MG/ML VIAL PO (06:11)
[2025-02-06 06:35] LABS: Influenza Virus A Antigen Positive; Influenza Virus B Antigen Negative; Internal Control Within Normal Limits; SARS-CoV-2 Ag NEGATIVE (NEGATIVE)
--- NOTE | 2025-02-06 06:52 | ED.GENADUL1 ---
HPI HPI - General Adult General Chief complaint: Headache Stated complaint: HEADACHE Time Seen by Provider: 02/06/25 05:47 Source: patient Source information: Started yesterday with frontal headache. Some nausea. Congestion noted Mode of arrival: walk-in Limitations: no limitations History of Present Illness HPI narrative: The patient is a 24-year-old female who presents to the emergency department with headache and lower extremity myalgias. Her symptoms began yesterday. She had her children are all sick. The patient has intense pressure in her ears that radiates to the frontal portion of her head. She has a throbbing headache that is moderate in severity. She took ibuprofen prior to her work at 8 PM and had some improvement. However by 2 AM her symptoms started to return. She left work and went to her mother's house where she received an [id number] cold and flu relief medication that had acetaminophen. The patient is presenting here because she was going to take her entire family to the doctor but she no longer can wait and is presenting for assessment. She has no neck pain or stiffness. No difficulty breathing or swallowing. She does have a cough that is nonproductive in nature. The patient does not smoke but she does vape. Related Data Home Medications ?Medication ?Instructions ?Recorded ?Confirmed fluoxetine 10 mg capsule 10 mg PO DAILY 05/09/23 12/03/23 benzonatate 200 mg capsule 200 mg PO TID 12/03/23 12/03/23 fluticasone propionate 50 1 spray intranasal DAILY 12/03/23 12/03/23 mcg/actuation nasal spray,suspension metformin 500 mg tablet 500 mg PO BID 12/03/23 12/03/23 prednisone 10 mg tablet 10 mg PO DAILY 12/03/23 12/03/23 rizatriptan 10 mg tablet 10 mg PO Q2H PRN migraine headache 12/03/23 12/03/23 Previous Rx's ?Medication ?Instructions ?Recorded penicillin V potassium 250 mg 250 mg PO QID 10 days #40 tabs 12/03/23 tablet ibuprofen 600 mg tablet 600 mg PO Q8H #20 tabs 02/06/25 ondansetron 4 mg disintegrating 4 mg PO Q6H PRN nausea and 02/06/25 tablet vomiting #10 tabs oseltamivir 75 mg capsule (Tamiflu) 75 mg PO BID 5 days #10 caps 02/06/25 Allergies Allergy/AdvReac Type Severity Reaction Status Date / Time No Known Drug Allergies Allergy Verified 02/06/25 05:37 Opioid HPI Opioid Management Most Recent Opioid Data: Last Pain Scale 9 02/06/25 05:43 02/06/25 Last ED Pain Assessment 02/06/25 05:43 Review of Systems ROS Status of ROS 10 or more systems reviewed and unremarkable except as noted in history and below PFSH PFS Social History Smoking status: Current every day smoker Little interest or pleasure in doing things: not at all Feeling down, depressed, or hopeless: not at all Exam Narrative Exam Narrative: Prior to examining the patient, I have washed with hospital approved and provided Antiseptic Hand Obiee Report Developer and have also applied gloves.? Prior to touching the patient, I asked for consent to examine the patient.? General: Alert and oriented, well nourished, mild distress. Eye: PERRL, EOMI, normal conjunctiva. HENT: Normocephalic, normal hearing, moist oral mucosa, no scleral icterus, no sinus tenderness. Tympanic membranes are not red, dull, bulging. Neck: Supple, non-tender, no carotid bruits, no JVD, no lymphadenopathy. Lungs: Clear to auscultation and percussion, non-labored respiration. Heart: Normal rate, regular rhythm, no murmur, gallop or edema. Abdomen: Soft, non-tender, non-distended, normal bowel sounds, no masses. Musculoskeletal: Normal range of motion and strength, no tenderness or swelling. Skin: Skin is warm, dry and pink, no rashes or lesions. Neurologic: Awake, alert, and oriented X3, CN II-XII intact. Psychiatric: Cooperative, appropriate mood and affect.? Following the conclusion of the examination, I have washed my hands thoroughly after removing examination gloves. Constitutional Vital Signs, click to edit/add: Last Vital Signs Temp 98.4 F 02/06/25 05:32 Pulse 96 H 02/06/25 05:32 Resp 16 02/06/25 05:47 BP 130/89 02/06/25 05:32 Pulse Ox 100 02/06/25 05:47 O2 Del Method Room Air 02/06/25 05:47 Course Course Hospital Course: I evaluated the patient. I was interested in giving her some Toradol for analgesic management patient stated last time she took Toradol she got a 10 out of 10 raging headache that needed to go to the urgent care for. Patient therefore was given Decadron for analgesic management. Reevaluation(s) Reevaluation #1: I checked on the patient let her know she had influenza A. Patient's symptoms started yesterday. She would like to initiate Tamiflu therapy. I will also prescribe her Zofran as she is a little nauseated as well as ibuprofen. Patient states that she has to go to work later today. I did indicate to the patient she is infectious to her coworkers and have recommended that she mask up at work to keep her coworker safe. Patient expresses verbal understanding. Time: 06:55 Vital Signs Vital signs: Vital Signs Temperature 98.4 F 02/06/25 05:32 Pulse Rate 96 H 02/06/25 05:32 Respiratory Rate 16 02/06/25 05:32 Blood Pressure 130/89 02/06/25 05:32 Pulse Oximetry 100 02/06/25 05:32 Oxygen Delivery Method Room Air 02/06/25 05:32 Temperature 98.4 F 02/06/25 05:32 Pulse Rate 96 H 02/06/25 05:32 Respiratory Rate 16 02/06/25 05:47 Blood Pressure 130/89 02/06/25 05:32 Pulse Oximetry 100 02/06/25 05:47 Oxygen Delivery Method Room Air 02/06/25 05:47 Medical Decision Making [facility] Narrative Medical decision making narrative: In summary, the patient is a 24-year-old female who presents to the emergency department with 1 day symptoms of sore throat, ear pain, headache, and a nonproductive cough. Patient did not receive the influenza vaccination. Differential Diagnosis Differential Diagnosis: Flu, COVID, strep, upper respiratory infection Medical Records Medical records reviewed: Yes I reviewed the patient's medical records Lab Data Lab results reviewed: Yes I reviewed the patient's lab results Lab results narrative: Patient is evidence of an Tuesday. Labs: Lab Results 02/06/25 Range/Units 06:15 Influenza Type A Ag Positive A Influenza Type B Ag Negative SARS-CoV-2 Ag (CV2AG) Negative (NEGATIVE) Discharge Plan Discharge Chief Complaint: Headache Clinical Impression: Influenza A Patient Disposition: Home, Self-Care Time of Disposition Decision: 06:57 Condition: Good Mode of Transportation: Private Vehicle Prescriptions / Home Meds: New ibuprofen 600 mg tablet 600 mg PO Q8H Qty: 20 0RF ondansetron 4 mg tablet,disintegrating 4 mg PO Q6H PRN (Reason: nausea and vomiting) Qty: 10 0RF oseltamivir [Tamiflu] 75 mg capsule 75 mg PO BID 5 Days Qty: 10 0RF No Action fluoxetine 10 mg capsule 10 mg PO DAILY benzonatate 200 mg capsule 200 mg PO TID fluticasone propionate 50 mcg/actuation spray,suspension 1 spray INTRANASAL DAILY metformin 500 mg tablet 500 mg PO BID prednisone 10 mg tablet 10 mg PO DAILY rizatriptan 10 mg tablet 10 mg PO Q2H PRN (Reason: migraine headache) penicillin V potassium 250 mg tablet 250 mg PO QID 10 Days Qty: 40 0RF Print Language: Marshallese Instructions: Influenza (ED) Additional Instructions: Thank you for trusting me with your care today. Please avoid dairy products. Please drink more fluids. Take medication as indicated. Tamiflu may cause diarrhea or nausea. Your kids likely have the same thing. Referrals: GIACOMO CAPPS [Primary Care Provider] - 1 week
--- NOTE | 2025-02-06 07:00 | ED.GENADUL1 ---
HPI HPI - General Adult General Chief complaint: Headache Stated complaint: HEADACHE Time Seen by Provider: 02/06/25 05:47 Source: patient Source information: Started yesterday with frontal headache. Some nausea. Congestion noted Mode of arrival: walk-in Limitations: no limitations Related Data Home Medications ?Medication ?Instructions ?Recorded ?Confirmed fluoxetine 10 mg capsule 10 mg PO DAILY 05/09/23 12/03/23 benzonatate 200 mg capsule 200 mg PO TID 12/03/23 12/03/23 fluticasone propionate 50 1 spray intranasal DAILY 12/03/23 12/03/23 mcg/actuation nasal spray,suspension metformin 500 mg tablet 500 mg PO BID 12/03/23 12/03/23 prednisone 10 mg tablet 10 mg PO DAILY 12/03/23 12/03/23 rizatriptan 10 mg tablet 10 mg PO Q2H PRN migraine headache 12/03/23 12/03/23 Previous Rx's ?Medication ?Instructions ?Recorded penicillin V potassium 250 mg 250 mg PO QID 10 days #40 tabs 12/03/23 tablet ibuprofen 600 mg tablet 600 mg PO Q8H #20 tabs 02/06/25 ondansetron 4 mg disintegrating 4 mg PO Q6H PRN nausea and 02/06/25 tablet vomiting #10 tabs oseltamivir 75 mg capsule (Tamiflu) 75 mg PO BID 5 days #10 caps 02/06/25 Allergies Allergy/AdvReac Type Severity Reaction Status Date / Time No Known Drug Allergies Allergy Verified 02/06/25 05:37 Opioid HPI Opioid Management Most Recent Opioid Data: Last Pain Scale 9 02/06/25 05:43 02/06/25 Last ED Pain Assessment 02/06/25 05:43 PFSH PFSH Social History Smoking status: Current every day smoker Little interest or pleasure in doing things: not at all Feeling down, depressed, or hopeless: not at all Exam Constitutional Vital Signs, click to edit/add: Last Vital Signs Temp 98.4 F 02/06/25 05:32 Pulse 96 H 02/06/25 05:32 Resp 16 02/06/25 05:47 BP 130/89 02/06/25 05:32 Pulse Ox 100 02/06/25 05:47 O2 Del Method Room Air 02/06/25 05:47 Course Course Hospital Course: I evaluated the patient. I was interested in giving her some Toradol for analgesic management patient stated last time she took Toradol she got a 10 out of 10 raging headache that needed to go to the urgent care for. Patient therefore was given Decadron for analgesic management. Vital Signs Vital signs: Vital Signs Temperature 98.4 F 02/06/25 05:32 Pulse Rate 96 H 02/06/25 05:32 Respiratory Rate 16 02/06/25 05:32 Blood Pressure 130/89 02/06/25 05:32 Pulse Oximetry 100 02/06/25 05:32 Oxygen Delivery Method Room Air 02/06/25 05:32 Temperature 98.4 F 02/06/25 05:32 Pulse Rate 96 H 02/06/25 05:32 Respiratory Rate 16 02/06/25 05:47 Blood Pressure 130/89 02/06/25 05:32 Pulse Oximetry 100 02/06/25 05:47 Oxygen Delivery Method Room Air 02/06/25 05:47 Medical Decision Making Lab Data Labs: Lab Results 02/06/25 Range/Units 06:15 Influenza Type A Ag Positive A Influenza Type B Ag Negative SARS-CoV-2 Ag (CV2AG) Negative (NEGATIVE) Discharge Plan Discharge Chief Complaint: Headache Clinical Impression: Influenza A Patient Disposition: Home, Self-Care Time of Disposition Decision: 06:57 Condition: Good Mode of Transportation: Private Vehicle Prescriptions / Home Meds: New ibuprofen 600 mg tablet 600 mg PO Q8H Qty: 20 0RF ondansetron 4 mg tablet,disintegrating 4 mg PO Q6H PRN (Reason: nausea and vomiting) Qty: 10 0RF oseltamivir [Tamiflu] 75 mg capsule 75 mg PO BID 5 Days Qty: 10 0RF No Action fluoxetine 10 mg capsule 10 mg PO DAILY benzonatate 200 mg capsule 200 mg PO TID fluticasone propionate 50 mcg/actuation spray,suspension 1 spray INTRANASAL DAILY metformin 500 mg tablet 500 mg PO BID prednisone 10 mg tablet 10 mg PO DAILY rizatriptan 10 mg tablet 10 mg PO Q2H PRN (Reason: migraine headache) penicillin V potassium 250 mg tablet 250 mg PO QID 10 Days Qty: 40 0RF Print Language: Palestinian Instructions: Influenza (ED) Additional Instructions: Thank you for trusting me with your care today. Please avoid dairy products. Please drink more fluids. Take medication as indicated. Tamiflu may cause diarrhea or nausea. Your kids likely have the same thing. Referrals: GIACOMO CAPPS [Primary Care Provider] - 1 week
== END 2025-02-06 07:14 | disposition home or self-care (01) ==
PROVIDERS: Emergency Provider Emergency Medicine; PCP Family Medicine
DX: J10.1 Influenza due to other identified influenza virus with other respiratory manifestations (principal); R51.9 Headache, unspecified; F17.290 Nicotine dependence, other tobacco product, uncomplicated; R11.0 Nausea
CPT/HCPCS: 87804; 87811; 99283; J1100